=== PATIENT | male | born 1950 | race Two or more races ===

== ENCOUNTER 2025-07-19 19:52 | Inpatient (IN) | payer MEDICARE, OTHER, SELFPAY ==
[2025-07-19 15:23] VITALS: BP 148/81
[2025-07-19 15:59] LABS: COVID-19 Antigen Negative (Negative)
[2025-07-19 16:33] VITALS: BP 128/60
[2025-07-19 16:35] VITALS: BMI 25.0
[2025-07-19 17:00] VITALS: BP 125/55
[2025-07-19] MEDS: TYLENOL/FEVERALL 650 MG RECTAL (17:04)
--- NOTE | 2025-07-19 17:09 | ED.GENMED ---
History of Present Illness
<Zenaida Raymundo PA-C - Last Filed: 07/20/25 14:11>
General
Chief Complaint: Weakness
Source: patient
Exam Limitations: altered mental status
Time Seen by Provider: 07/19/25 16:43
Nursing documentation reviewed up to this point in time: agreed with
History of Present Illness
History of Present Illness:
Patient is a 74-year-old male with history of Alzheimer's, CAD s/p CABG and stents with a pacemaker who presents to the emergency department with daughter for evaluation of generalized weakness. Patient has history of Alzheimer's and is unable to
contribute to history. His daughter states that this morning her father, who she lives with, was unable to get out of bed due to what appeared to be generalized weakness. He also appeared to be more confused than his baseline today. He seemed to
be at his baseline health yesterday.
Patient's daughter was unaware that he had a fever until he arrived today in the emergency department. She states that he struggles with a chronic cough and runny nose. No recent productive cough, complaints of abdominal pain, diarrhea. No
obvious changes in urination.There have not been any known sick contacts. No history of recent falls or trauma.
Patient currently denies any complaints including chest pain, shortness of breath, or abdominal pain.
Review of Systems
<Zenaida Raymundo PA-C - Last Filed: 07/20/25 14:11>
Review of Systems
Allergies reviewed?: Yes
All Other Systems: ROS reviewed and negative except as documented in HPI and ROS
Phy Exam
<Zenaida Raymundo PA-C - Last Filed: 07/20/25 14:11>
Physical Exam
Physical Exam:
Vitals: Febrile. Otherwise vital signs stable.
General: Patient is generally weak although appears in no distress
Skin: Warm and dry, no rashes or lesions
Head: Normocephalic, atraumatic
Eyes: Sclera nonicteric. No nystagmus.
Throat: Protecting airway
Neck: Normal ROM, no cervical spine tenderness, no meningismus
Cardiac: Regular rate and rhythm, no murmurs.
Pulm: Normal respiratory effort. Lungs clear bilaterally.
Abdomen: Abdomen soft and nontender. No rebound tenderness or guarding.
Extremities: No evidence of cyanosis or edema. Distal pulses intact
Neuro: Alert. Decreased strength in bilateral lower extremities.
Psychiatric: Normal affect.
Sepsis
<Zenaida Raymundo PA-C - Last Filed: 07/20/25 14:11>
Sepsis Screening
Sepsis Assessment: Sepsis
Sepsis Screen
Sepsis Screen: Sepsis
Date: 07/20/25
Time: 14:09
Course
<Zenaida Raymundo PA-C - Last Filed: 07/20/25 14:11>
Orders/Labs/Results
Orders:
Orders
07/19/25 Breakfast
Regular
At Your Request: Limited Participation
07/19/25 15:31
COVID-19 Antigen Urgent
Source: Nasal Swab
Influenza A+B Rapid Molecular Urgent
TETE Source: Nasal Swab
Specimen Description:
07/19/25 16:55
Complete Blood Count/With Diff Urgent
Comprehensive Metabolic Panel Urgent
Lactic Acid Urgent
Blood Culture Urgent
TETE Source: Blood/Venous
Specimen Description:
07/19/25 16:59
Straight cath- Treatment ONCE
Acetaminophen [Tylenol/Feverall] 650 mg RECTAL NOW STA
07/19/25 17:00
CT Head W/o Iv Contrast Urgent
Comment:
Reason For Exam: AMS, weakness
CR Chest - 2 Views Urgent
Comment:
Reason For Exam: Fever, cough
07/19/25 17:01
Electrocardiogram (*1) Urgent
Reason for Study: Fatigue / Weakness
EKG- Treatment ONCE
Interrogate Pacemaker- Treatment ONCE
0.9% Sodium Chloride 1000 ml [Nss] 1,000 ml IV BOLUS
Acetaminophen [Tylenol/Feverall] 650 mg .ROUTE .STK-MED ONE
07/19/25 17:05
Blood Culture Urgent
TETE Source: Blood/Venous
Specimen Description:
07/19/25 18:06
Troponin I Urgent
Urinalysis Reflex To Culture Urgent
Date Specimen was Collected: 07/19/25
Time Specimen was Collected: 17:41
Urine Microscopic Reflex Cult Urgent
Urine Culture Urgent
TETE Source: U
Specimen Description:
Date Specimen was Collected: 07/19/25
Time Specimen was Collected: 17:41
07/19/25 18:36
Cefepime HCl [Maxipime] 2,000 mg IV NOW STA
07/19/25 19:15
0.9% Sodium Chloride 1000 ml [Nss] 1,000 ml IV BOLUS
07/19/25 19:29
Sterile Water [Sterile Water For Injection] 20 ml .ROUTE .STK-MED
07/19/25 19:32
Admit/Transfer Patient As Directed
Co-Sign Provider:
Level of Care: Inpatient admission
Assign to:: Medical/Surgical
Physician / Group: Jacob
Diagnosis: UTI, Sepsis, TME
Reason for Hospitalization: UTI, Sepsis, TME
Expected length of stay greater than two midnights?: Yes
ELOS- Estimated Length of Stay in days: 3
I certify the patient meets the requirements for IP care: Yes
PRN Pain Medication Management As Directed
May give lesser potent ordered pain med per pt: Yes
preference::
Protocol:: Medication orders for pain may be administered in a
manner that supports deferring to patient preference
when the pt is:
- Requesting an ordered lesser potent pain medication.
Least to most potent pain medications are defined
as: acetaminophen < NSAID < tramadol < opioids
(morphine, oxycodone, hydromorphone).
- Requesting a lesser dose of the same medication IF
ORDERED.
- Requesting a less intrusive route of administration
if both routes are prescribed by the provider (PO <
IV).
07/19/25 19:33
Code Status As Directed
Resuscitation Status: Limited DNR
Limited DNR: -No intubation
07/19/25 21:35
0.9% Sodium Chloride 1000 ml [Nss] 1,000 ml IV 80 mls/hr
Acetaminophen [Tylenol] 650 mg PO Q4HPRN PRN
Metoprolol [Lopressor] 25 mg PO BID
07/19/25 21:35
Activity As Directed
Activity Level: Ambulate
With Assistance
Bladder Scan As Directed
Follow Bladder Retention/Intermittent Cath Algorithm?: Yes
PRN if no void in __ hours: 6
Frequency: Per Retention Algorithm
If Bladder Scan Result >: 400
then:: Straight cath
I/O [Intake/ Output] As Directed
Frequency: Per unit guidelines
Pneumatic Compression Sleeves As Directed
Type: Knee high
Straight Cath As Directed
Frequency: Per Retention Algorithm
Additional Instructions: straight cath as needed per acute urinary retention algorithm for 24 hrs
Additional Instructions: for bladder scan greater than 400 mL
Vital Signs As Directed
Frequency: Per unit guidelines
Oxygen Therapy [O2 Therapy] [RESP] Routine
Titrate/Wean O2 to maintain O2 sat greater than (%): 94
Ot Eval And Treat Routine
PT Consult [Pt Eval And Treat] Routine
Activity Level: Ambulate
With Assistance
Speech Therapy Eval & Treat Routine
DX Deep Vein Thrombosis Video Routine
07/19/25 22:00
Atorvastatin [Lipitor] 80 mg PO HS
Memantine HCl [Namenda] 10 mg PO BID
Trazodone [Desyrel] 50 mg PO HS
07/20/25 06:00
CefTRIAXone [Rocephin] 1,000 mg IV Q24H
07/20/25 06:34
Basic Metabolic Panel IN AM
Complete Blood Count/No Diff IN AM
07/20/25 08:00
Aspirin Low Dose EC [Aspir Low (Enteric Coated)] 81 mg PO DAILY
Clopidogrel Bisulfate [Plavix] 75 mg PO DAILY
Donepezil HCl [Aricept] 10 mg PO DAILY
Escitalopram Oxalate [Lexapro] 15 mg PO DAILY
FOLic ACID [Folvite] 1 mg PO DAILY
Abnormal Lab Results
07/19/25 07/19/25
16:55 18:06
WBC 16.0 H 10^3/uL
(4.8-10.8)
MPV 10.5 H fL
(7.4-10.4)
Abs Immat Gran (auto) 0.1 H 10^3/uL
(0-0.05)
Absolute Neuts (auto) 13.7 H 10^3/uL
(1.4-6.5)
Absolute Monos (auto) 0.9 H 10^3/uL
(0.1-0.6)
Neutrophils % 85.3 H %
(42.2-75.2)
Lymphocytes % 7.5 L %
(20.5-51.1)
Sodium 133 L mmol/L
(135-145)
Glucose 195 H mg/dl
(70-99)
Total Bilirubin 2.0 H mg/dl
(0.2-1.3)
Urine Ketones 1+ A
(Negative)
Ur Occult Blood Reflex 4+ A
(Negative)
Urine Nitrite (Reflex) Positive A
(Negative)
Leukocyte Esterase Rfl 2+ A
(Negative)
Urine RBC 26-30 A /HPF
(0-2)
Urine WBC (Reflex) 50-60 A /HPF
(0-5)
Urine Bacteria (Reflex) Many A
(Negative)
Urine Glucose 3+ A
(Negative)
Urine Albumin (Reflex) 2+ A
(Neg - Trace)
07/19/25 16:55
07/19/25 16:55
Vital Signs
Initial and Last Documented VS:
Initial Vital Signs
Temp Pulse Resp BP Pulse Ox
101.4 F H 83 16 148/81 95
07/19/25 15:23 07/19/25 15:23 07/19/25 15:23 07/19/25 15:23 07/19/25 15:23
Last Documented Vital Signs
Temp Pulse Resp BP Pulse Ox
98.1 F 67 18 152/70 96
07/20/25 08:01 07/20/25 08:49 07/20/25 08:01 07/20/25 08:49 07/20/25 08:01
<Deb Cerda, DO - Last Filed: 07/19/25 18:39>
Orders/Labs/Results
Orders:
Orders
07/19/25 Breakfast
Regular
At Your Request: Limited Participation
07/19/25 15:31
COVID-19 Antigen Urgent
Source: Nasal Swab
Influenza A+B Rapid Molecular Urgent
TETE Source: Nasal Swab
Specimen Description:
07/19/25 16:55
Complete Blood Count/With Diff Urgent
Comprehensive Metabolic Panel Urgent
Lactic Acid Urgent
Blood Culture Urgent
TETE Source: Blood/Venous
Specimen Description:
07/19/25 16:59
Straight cath- Treatment ONCE
Acetaminophen [Tylenol/Feverall] 650 mg RECTAL NOW STA
07/19/25 17:00
CT Head W/o Iv Contrast Urgent
Comment:
Reason For Exam: AMS, weakness
CR Chest - 2 Views Urgent
Comment:
Reason For Exam: Fever, cough
07/19/25 17:01
Electrocardiogram (*1) Urgent
Reason for Study: Fatigue / Weakness
EKG- Treatment ONCE
Interrogate Pacemaker- Treatment ONCE
0.9% Sodium Chloride 1000 ml [Nss] 1,000 ml IV BOLUS
Acetaminophen [Tylenol/Feverall] 650 mg .ROUTE .STK-MED ONE
07/19/25 17:05
Blood Culture Urgent
TETE Source: Blood/Venous
Specimen Description:
07/19/25 18:06
Troponin I Urgent
Urinalysis Reflex To Culture Urgent
Date Specimen was Collected: 07/19/25
Time Specimen was Collected: 17:41
Urine Microscopic Reflex Cult Urgent
Urine Culture Urgent
TETE Source: U
Specimen Description:
Date Specimen was Collected: 07/19/25
Time Specimen was Collected: 17:41
07/19/25 18:36
Cefepime HCl [Maxipime] 2,000 mg IV NOW STA
07/19/25 19:15
0.9% Sodium Chloride 1000 ml [Nss] 1,000 ml IV BOLUS
07/19/25 19:29
Sterile Water [Sterile Water For Injection] 20 ml .ROUTE .STK-MED
07/19/25 19:32
Admit/Transfer Patient As Directed
Co-Sign Provider:
Level of Care: Inpatient admission
Assign to:: Medical/Surgical
Physician / Group: Jcaob
Diagnosis: UTI, Sepsis, TME
Reason for Hospitalization: UTI, Sepsis, TME
Expected length of stay greater than two midnights?: Yes
ELOS- Estimated Length of Stay in days: 3
I certify the patient meets the requirements for IP care: Yes
PRN Pain Medication Management As Directed
May give lesser potent ordered pain med per pt: Yes
preference::
Protocol:: Medication orders for pain may be administered in a
manner that supports deferring to patient preference
when the pt is:
- Requesting an ordered lesser potent pain medication.
Least to most potent pain medications are defined
as: acetaminophen < NSAID < tramadol < opioids
(morphine, oxycodone, hydromorphone).
- Requesting a lesser dose of the same medication IF
ORDERED.
- Requesting a less intrusive route of administration
if both routes are prescribed by the provider (PO <
IV).
07/19/25 19:33
Code Status As Directed
Resuscitation Status: Limited DNR
Limited DNR: -No intubation
07/19/25 21:35
0.9% Sodium Chloride 1000 ml [Nss] 1,000 ml IV 80 mls/hr
Acetaminophen [Tylenol] 650 mg PO Q4HPRN PRN
Metoprolol [Lopressor] 25 mg PO BID
07/19/25 21:35
Activity As Directed
Activity Level: Ambulate
With Assistance
Bladder Scan As Directed
Follow Bladder Retention/Intermittent Cath Algorithm?: Yes
PRN if no void in __ hours: 6
Frequency: Per Retention Algorithm
If Bladder Scan Result >: 400
then:: Straight cath
I/O [Intake/ Output] As Directed
Frequency: Per unit guidelines
Pneumatic Compression Sleeves As Directed
Type: Knee high
Straight Cath As Directed
Frequency: Per Retention Algorithm
Additional Instructions: straight cath as needed per acute urinary retention algorithm for 24 hrs
Additional Instructions: for bladder scan greater than 400 mL
Vital Signs As Directed
Frequency: Per unit guidelines
Oxygen Therapy [O2 Therapy] [RESP] Routine
Titrate/Wean O2 to maintain O2 sat greater than (%): 94
Ot Eval And Treat Routine
PT Consult [Pt Eval And Treat] Routine
Activity Level: Ambulate
With Assistance
Speech Therapy Eval & Treat Routine
DX Deep Vein Thrombosis Video Routine
07/19/25 22:00
Atorvastatin [Lipitor] 80 mg PO HS
Memantine HCl [Namenda] 10 mg PO BID
Trazodone [Desyrel] 50 mg PO HS
07/20/25 06:00
CefTRIAXone [Rocephin] 1,000 mg IV Q24H
07/20/25 06:34
Basic Metabolic Panel IN AM
Complete Blood Count/No Diff IN AM
07/20/25 08:00
Aspirin Low Dose EC [Aspir Low (Enteric Coated)] 81 mg PO DAILY
Clopidogrel Bisulfate [Plavix] 75 mg PO DAILY
Donepezil HCl [Aricept] 10 mg PO DAILY
Escitalopram Oxalate [Lexapro] 15 mg PO DAILY
FOLic ACID [Folvite] 1 mg PO DAILY
Abnormal Lab Results
07/19/25 07/19/25
16:55 18:06
WBC 16.0 H 10^3/uL
(4.8-10.8)
MPV 10.5 H fL
(7.4-10.4)
Abs Immat Gran (auto) 0.1 H 10^3/uL
(0-0.05)
Absolute Neuts (auto) 13.7 H 10^3/uL
(1.4-6.5)
Absolute Monos (auto) 0.9 H 10^3/uL
(0.1-0.6)
Neutrophils % 85.3 H %
(42.2-75.2)
Lymphocytes % 7.5 L %
(20.5-51.1)
Sodium 133 L mmol/L
(135-145)
Glucose 195 H mg/dl
(70-99)
Total Bilirubin 2.0 H mg/dl
(0.2-1.3)
Urine Ketones 1+ A
(Negative)
Ur Occult Blood Reflex 4+ A
(Negative)
Urine Nitrite (Reflex) Positive A
(Negative)
Leukocyte Esterase Rfl 2+ A
(Negative)
Urine RBC 26-30 A /HPF
(0-2)
Urine WBC (Reflex) 50-60 A /HPF
(0-5)
Urine Bacteria (Reflex) Many A
(Negative)
Urine Glucose 3+ A
(Negative)
Urine Albumin (Reflex) 2+ A
(Neg - Trace)
07/19/25 16:55
07/19/25 16:55
Vital Signs
Initial and Last Documented VS:
Initial Vital Signs
Temp Pulse Resp BP Pulse Ox
101.4 F H 83 16 148/81 95
07/19/25 15:23 07/19/25 15:23 07/19/25 15:23 07/19/25 15:23 07/19/25 15:23
Last Documented Vital Signs
Temp Pulse Resp BP Pulse Ox
98.1 F 67 18 152/70 96
07/20/25 08:01 07/20/25 08:49 07/20/25 08:01 07/20/25 08:49 07/20/25 08:01
<Zenaida Raymundo PA-C - Last Filed: 07/20/25 14:11>
MDM/Problems Addressed
Differential Diagnosis Includes:
Not limited to: Sepsis, viral illness, bronchitis, pneumonia, UTI, pyelonephritis, etc.
MDM/Problems Addressed:
74-year-old male presents with generalized weakness for one day and was noted to be febrile on arrival. His daughter reports worsening confusion, though he has a known history of dementia.
On examination, the patient is alert without focal neurological deficits but appears generally weak, particularly in the bilateral lower extremities. Cardiopulmonary and abdominal exams are unremarkable, though he does have an intermittent cough.
Given the combination of fever, weakness, and altered mentation, concern for infectious process. A full septic workup was performed, including CBC, chemistry, lactic acid, urinalysis, chest X-ray, head CT, and blood cultures.
Labs revealed leukocytosis; chemistry was unremarkable, and lactic acid was at the upper limit of normal. Chest X-ray and head CT showed no acute abnormalities. Urinalysis demonstrated findings suggestive of a urinary tract infection, which is
suspected to be the primary source of infection.
The patient was treated with IV fluids and IV Cefepime in the ED. He has remained hemodynamically stable and normotensive throughout his stay. Given his age, comorbid dementia, and presentation concerning for early sepsis, admission is warranted for
continued IV antibiotic therapy and monitoring. The patient has been accepted by the hospitalist service in stable condition for ongoing care.
Chronic conditions affecting care:
Alzheimer's
Acute Exacerbation and/or Progression of Chronic Illness:
N/A
<Zenaida Raymundo PA-C - Last Filed: 07/20/25 14:11>
*Radiology
Radiology exam reviewed: radiology read reviewed
*Pulse Oximetry
SaO2: 95
Oxygen Mode of Delivery: Room air
Patient hypoxic: no
*EKG
Interpreted by ED Provider?: Yes
EKG Intrepretation Date: 07/19/25
Interpretation: abnormal
Comparison EKG: changes noted
Heart Rate: 68
Rate: normal
Rhythm: sinus
[place]: normal axis
Interval: normal QT interval
QRS Pattern: low voltage
Ischemia: T-wave inversion (T wave inversions in anterior/lateral leads)
*Disability Liaison Officer Interpretation
Rate: normal
Interpretation: normal
Heart Rate: 80
Rhythm: sinus
*Critical Care Note
Total Time (30-74mins, 75-104mins- exclusive of procedures): Not Applicable
<Zenaida Raymundo PA-C - Last Filed: 07/20/25 14:11>
Patient Management
Discussion with other providers: Hospitalist
Escalation/DeEscalation of care consider admission/obs:
Admit for IV antibiotics, fluid resuscitation with sepsis secondary to UTI
ED Attending Note
<Zenaida Raymundo PA-C - Last Filed: 07/20/25 14:11>
-
Portions of this chart may have been created with voice recognition software.� Occasional wrong word or��sound alike� substitutions may have occurred due to the inherent limitations of voice recognition software.
<Deb Cerda DO - Last Filed: 07/19/25 18:39>
ED Attending Note
Patient seen and examined by attending physician: Yes
I performed the substantive portion of visit, reviewed & personally made and approve the management plan that is documented in note by myself or DAVID.: Yes
I performed a history and physical exam of patient and discussed management with resident, I reviewed resident's note and agree with documented findings and plan of care.: Yes
ED Attending Note:
74-year-old male with history of dementia presenting for increased confusion. Patient arrives with daughter who notes that yesterday he did not want to get out of bed, increasingly confused. Patient very limited historian given his dementia.
Daughter notes chronic cough. Denies any known sick contacts. Patient himself denies any abdominal pain. Vital signs on arrival significant for fever
On exam patient is resting comfortably, nontoxic and in no acute distress. Unremarkable cardiac and pulmonary exam. No tenderness to the abdomen. Patient is disoriented, however suspected baseline per daughter. Patient is meeting SIRS, with
concern for underlying infection and possible developing sepsis. Plan for broad workup including laboratory analysis, chest x-ray imaging, urinalysis. No indication for advanced imaging of the abdomen at this time.
18:40- Labs show leukocytosis and a lactate of 2.0. Patient receiving IV fluids. Chest x-ray without any sign of pneumonia. Negative COVID and flu. Urine is grossly positive for UTI. Will start patient on cefepime with plan for admission for
concern of sepsis from urinary source
Discharge Plan
Departure
Patient Disposition: Admit
Date of Disposition: 07/19/25
Time of Disposition: 18:49
Presentation/result/management discussed w/ accepting MD/DO: Hospitalist
Discharge Problem:
Sepsis, Acute UTI, Altered mental status
Interventions
Interventions:
*Risk Screen - Suicide Last Done: 07/19/25 15:26
*General Assessment Last Done: 07/19/25 16:36
*Neglect/Abuse Screening Last Done: 07/19/25 15:26
*ED- Fall Risk Assessment Last Done: 07/19/25 16:36
*ED COVID-19 Vaccine History Last Done: 07/19/25 16:36
*ED Influenza Vaccine History Last Done: 07/19/25 16:36
*Nursing Disposition Last Done: 07/19/25 22:03
ED- Cardiac Assessment Last Done: 07/19/25 17:11
ED- Neurological Assessment Last Done: 07/19/25 17:11
ED- Pulmonary Assessment Last Done: 07/19/25 17:11
Discharge Date and Time
Discharge Date/Time: 07/19/25 21:50
[2025-07-19 17:15] LABS: Hematocrit 42.4 % (39.0-52.0); Hemoglobin 14.3 g/dL (13.0-18.0); Mean Corp Hgb Conc. 33.7 g/dL (33.0-37.0); Mean Corpuscular Volume 88.0 fL (80.0-94.0); Nucleated Red Blood Cells % 0 % (-); Platelet Count 187 10^3/uL (130-400); Red Cell Dist. Width 12.5 % (11.5-14.5)
[2025-07-19 17:36] LABS: ALT (SGPT) 32 U/L (0-50); AST (SGOT) 30 U/L (17-59); Albumin 3.9 g/dl (3.5-5.0); Alkaline Phosphatase 89 U/L (38-126); Blood Urea Nitrogen 19 mg/dl (9-20); Calcium 9.5 mg/dl (8.4-10.2); Carbon Dioxide 23 mmol/L (22-30); Chloride 104 mmol/L (98-107); Estimated Creatinine Clearance 69 ml/min; Glucose 195 mg/dl (70-99); Potassium 3.6 mmol/L (3.5-5.1); Sodium 133 mmol/L (135-145); Total Protein 6.5 g/dl (6.3-8.2); eGFR > 60.00
[2025-07-19] MEDS: NSS 1000 IV ×3 (18:10→21:53)
[2025-07-19 18:22] LABS: Urine Character Slightly Cloudy (Clear)
[2025-07-19 18:36] LABS: Urine Red Blood Cell 26-30 /HPF (0-2)
[2025-07-19 18:37] LABS: Urine Squamous Cell 0-2 /LPF (Few); Urine White Cell 50-60 /HPF (0-5)
[2025-07-19 18:52] LABS: Troponin I < 0.012 ng/ml
[2025-07-19] MEDS: MAXIPIME 2000 MG IV (19:30)
--- NOTE | 2025-07-19 19:36 | HPS.HSE ---
Family Physician
-
Family Physician: Rangel Jain
Chief Complaint
-
Weakness / Confusion
History of Present Illness
Patient is a 74y M with PMH significant for ASCVD and dementia who presents to ED for evaluation of weakness and increased confusion. History obtained from daughter at the bedside. Patient is pleasantly confused at baseline. He is able to
ambulate with assist device or family assistance. He has had no recent complaints. Today family noted that he was very weak. He was unable to stand or even sit upright unassisted. Patient also seemed more disoriented than usual. Daughter notes
that he did not recognize her at time which is not typical. He was incontinent of urine. He usually has 'accidents' / urge incontinence but is not grossly incontinent.
In the ED patient is noted to be febrile to 102.3. He is resting comfortably at present.
Medical History
Past Medical History
Past Medical History: Reports Other
Additional Past Medical History:
ASCVD
SSS
Alzheimer's Dementia
Past Surgical History: Reports Other
Additional Past Surgical History:
CABG x 5
PTCA with Stents
PPM Placement
Social History
Tobacco: Former Smoker (Quit smoking 7 years ago.)
Alcohol: None
Drug: None
Living: With Family
Family History
Family History: Not pertinent
Allergies / Home Medications
Allergies reflects when Allergies were last updated in [facility] [employer].
Home Medications with original date entered in [facility]
Allergy/Medication List:
Allergies
Allergy/AdvReac Type Severity Reaction Status Date / Time
No Known Allergies Allergy Unverified 07/19/25 15:23
Home Medications
aspirin 81 mg tablet,delayed release 81 mg PO DAILY 07/19/25
atorvastatin 80 mg tablet 80 mg PO HS 07/19/25
clopidogrel 75 mg tablet 75 mg PO DAILY 07/19/25
donepezil 10 mg tablet 10 mg PO DAILY 07/19/25
escitalopram oxalate 10 mg tablet 15 mg PO DAILY 07/19/25
folic acid 1 mg tablet 1 mg PO DAILY 07/19/25
icosapent ethyl 1 gram capsule (Vascepa) 2 g PO BID 07/19/25
memantine 21 mg capsule sprinkle,extended release 24hr 21 mg PO HS 07/19/25
metoprolol tartrate 25 mg tablet 25 mg PO BID 07/19/25
trazodone 50 mg tablet 50 mg PO HS 07/19/25
Review of Systems
-
History Source: Patient (limited ROS from patient with daughter serving as inspecting engineer.) and Family
A 12 point ROS was completed and negative except as noted: Yes
Constitutional: Reports Fatigue
Respiratory: Denies Cough
Cardiac: Denies Chest Pain or Palpitations
Abdomen/GI: Reports Diarrhea (One episode of loose stools 2 days ago. None since.); Denies Abdominal Pain, Nausea, Vomiting, Bloody Stools or Black Stools
: Reports Incontinence; Denies Dysuria, Flank Pain or Bleeding
Neurological: Reports Weakness; Denies Headache
Psych: Reports Dementia
Physical Exam
Vital Signs
Vital Signs
Temp Pulse Resp BP Pulse Ox
102.3 F H 68 17 125/55 95
07/19/25 17:11 07/19/25 17:00 07/19/25 17:00 07/19/25 17:00 07/19/25 17:10
Physical Exam
General: Other (74y M in no acute distress.)
HEENT: Moist mucous membranes and PERRLA
Respiratory: Clear; No Wheezes, Rales or Rhonchi
Cardiac: S1/S2 and Regular Rhythm; No Murmur
GI: Soft, Non Tender, Non Distended and Normal Bowel Sounds
Genito-urinary: No costovertebral tender
Musculoskeletal: No Clubbing, No Cyanosis and No Edema
Neuro: Awake, Alert and Nonfocal/grossly intact; No Oriented
Laboratory Results
-
07/19/25 16:55
07/19/25 16:55
Laboratory Results
Lactic Acid 1.9 mmol/L (0.7-2.0) 07/19/25 16:55
Total Bilirubin 2.0 mg/dl (0.2-1.3) H 07/19/25 16:55
AST 30 U/L (17-59) 07/19/25 16:55
ALT 32 U/L (0-50) 07/19/25 16:55
Alkaline Phosphatase 89 U/L (38-126) 07/19/25 16:55
Troponin I < 0.012 ng/ml 07/19/25 18:06
Impression/Plan
-
A/P: Patient is a 74y M with PMH significant for ASCVD and dementia who presents to ED for evaluation of weakness and confusion.
UTI
Sepsis secondary to the above
Acute TME secondary to the above
- Admit for further evaluation and treatment.
- Patient presents with fever, leukocytosis, urinary incontinence and UA suggestive of infection.
- No other focal symptoms, findings, etc to suggest alternate source of infection.
- Continue IV ceftriaxone pending culture data.
- IVF support.
- Follow fever curve and monitor for clinical improvement / return to baseline.
ASCVD
- Stable. No noted chest pain or dyspnea.
- Paced rhythm.
- Continue current CV medication regimen.
Alzheimer's Dementia
- Follow for acute agitation / delirium during hospital stay.
- Continue Aricept / Namenda and trazodone.
DVT Prophylaxis: SCDs
Code Status: DNI
[2025-07-19 19:43] VITALS: BP 130/55
[2025-07-19 20:00] VITALS: BP 117/54
[2025-07-19 21:53] VITALS: BP 102/67
[2025-07-19] MEDS: NAMENDA 10 MG PO (22:02)
[2025-07-19] MEDS: TYLENOL 650 MG PO (22:02)
[2025-07-19] MEDS: LOPRESSOR 25 MG PO (22:02)
[2025-07-19] MEDS: DESYREL 50 MG PO (22:02)
[2025-07-19] MEDS: LIPITOR 80 MG PO (22:03)
--- NOTE | 2025-07-20 02:28 | DOWNTIME ---
There was a [employer] Client Electrical Inspector Downtime on 07/20/2025 from 0100 to 07/20/2025 at 0215. Downtime documentation of patient's care, including medication administrations, has been reconciled in the electronic record per guidelines. Refer to the
patient's paper chart under the miscellaneous tab to see printed paper medication records and downtime forms.
[2025-07-20] MEDS: ROCEPHIN 1000 MG IV (05:37)
[2025-07-20] MEDS: STERILE WATER FOR INJECTION 10 ML IV (05:37)
[2025-07-20 07:36] LABS: Hematocrit 38.9 % (39.0-52.0); Hemoglobin 12.9 g/dL (13.0-18.0); Mean Corp Hgb Conc. 33.2 g/dL (33.0-37.0); Mean Corpuscular Volume 90.3 fL (80.0-94.0); Platelet Count 154 10^3/uL (130-400); Red Cell Dist. Width 12.8 % (11.5-14.5)
[2025-07-20 08:01] VITALS: BP 152/70
[2025-07-20 08:19] LABS: Blood Urea Nitrogen 18 mg/dl (9-20); Calcium 8.5 mg/dl (8.4-10.2); Carbon Dioxide 22 mmol/L (22-30); Chloride 112 mmol/L (98-107); Estimated Creatinine Clearance 89 ml/min; Glucose 119 mg/dl (70-99); Potassium 3.7 mmol/L (3.5-5.1); Sodium 139 mmol/L (135-145); eGFR > 60.00
--- NOTE | 2025-07-20 08:35 | PTOTSP ---
Speech Language Pathology
Pt seen for clinical bedside swallow evaluation. Confusion noted, but pt was cooperative. P.O. trials of puree, regular solids, and thin liquids provided. Pt also seen for med pass with multiple pills at 1 time with liquid. Adequate mastication,
bolus formation, and A-P transit noted with no oral residue. No overt signs of aspiration. CXR clear on admission. No hx with IMPROVEMENT ENGINEER at [facility].
Recommend:
(1) Regular solids/thin liquids
(2) General aspiration precautions
(3) Meds as tolerated
(4) IMPROVEMENT ENGINEER to sign off. Please reconsult as indicated
[2025-07-20] MEDS: ASPIR LOW (ENTERIC COATED) 81 MG PO (08:37)
[2025-07-20] MEDS: FOLVITE 1 MG PO (08:37)
[2025-07-20] MEDS: NAMENDA 10 MG PO ×2 (08:37→20:26)
[2025-07-20] MEDS: LEXAPRO 15 MG PO (08:37)
[2025-07-20] MEDS: PLAVIX 75 MG PO (08:37)
[2025-07-20] MEDS: ARICEPT 10 MG PO (08:37)
[2025-07-20] MEDS: LOPRESSOR 25 MG PO ×2 (08:49→20:26)
[2025-07-20] MEDS: NSS 1000 IV (10:19)
[2025-07-20 11:41] LABS: Hepatitis C Antibody Negative (Negative)
[2025-07-20 16:00] VITALS: BP 120/90
--- NOTE | 2025-07-20 16:00 | W.PN.HOSP.TC ---
Today's Communication/Plan
-
Continue antibiotics pending cultures
Wean off IV fluids with sufficient oral intake and hydration
Bladder scan for retention
Continue supportive care
Assessment / Plan
Assessment / Plan
Impression/plan
Patient is a 74y M with PMH significant for ASCVD and dementia who presents to ED for evaluation of weakness and confusion.
UTI
Concern for sepsis secondary to the above
Acute TME secondary to the above
- Patient presents with fever, leukocytosis, urinary incontinence and UA suggestive of infection.
- No other focal symptoms, findings, etc to suggest alternate source of infection.
- Continue IV ceftriaxone pending culture data.
- IVF support.
- Follow fever curve and monitor for clinical improvement / return to baseline.
ASCVD
- Stable. No noted chest pain or dyspnea.
- Paced rhythm.
- Continue current CV medication regimen.
Alzheimer's Dementia
- Follow for acute agitation / delirium during hospital stay.
- Continue Aricept / Namenda and trazodone.
DVT Prophylaxis: SCDs
Code Status: DNI
Anticipated Discharge: 24 - 48 hours
Subjective/Interval History
-
Date of Service: July 20, 2025
Objective Data
-
Labs:
Laboratory Results
07/20/25
06:34
WBC 11.7 H
Hgb 12.9 L
Hct 38.9 L
Plt Count 154
Sodium 139
Potassium 3.7
Chloride 112 H
Carbon Dioxide 22
BUN 18
Creatinine 0.7
Glucose 119 H
Calcium 8.5
Vital Signs:
Vital Signs
Temp Pulse Resp BP Pulse Ox
98.1 F 67 18 152/70 96
07/20/25 08:01 07/20/25 08:49 07/20/25 08:01 07/20/25 08:49 07/20/25 08:01
Physical Exam
-
General: Well Developed and No Apparent Distress
HEENT: Normocephalic, Atraumatic and Moist Mucous Membranes
Respiratory: Clear to Auscultation
Cardiac: Regular Rhythm and S1/S2; Negative Murmur, Rub or Gallop
GI: Soft, Nontender, Nondistended and Normal Bowel Sounds; Negative Organomegaly
Rectal: Deferred by Provider
Musculoskeletal: No Clubbing, No Cyanosis and No Edema
Skin: Negative Rash
Neuro: Awake, Alert, Oriented (To name only) and Nonfocal/Grossly Intact
--- NOTE | 2025-07-20 16:17 | CM ---
carbon sequestration plant manager reviewed patient's chart and met with patient and spoke with patient's daughter by phone. Patient has dementia. Patient lives in a one story home, is independent with adl's and has a walker to use with ambulation, however patient walks
without his walker, patient is current with [facility] at home and referral sent.
[facility]

PCP: Rangel Jain
Pharmacy: [facility].
[2025-07-20 20:22] VITALS: BP 120/51
[2025-07-20] MEDS: DESYREL 50 MG PO (21:28)
[2025-07-20] MEDS: LIPITOR 80 MG PO (21:29)
[2025-07-20 23:00] VITALS: BP 118/56
[2025-07-20 23:25] VITALS: BP 118/56
[2025-07-21] MEDS: NSS 1000 IV ×2 (02:05→21:11)
[2025-07-21] MEDS: STERILE WATER FOR INJECTION 10 ML IV (05:41)
[2025-07-21] MEDS: ROCEPHIN 1000 MG IV (05:41)
[2025-07-21 08:29] VITALS: BP 127/54
[2025-07-21 08:38] LABS: Hematocrit 35.1 % (39.0-52.0); Hemoglobin 11.6 g/dL (13.0-18.0); Mean Corp Hgb Conc. 33.0 g/dL (33.0-37.0); Mean Corpuscular Volume 89.1 fL (80.0-94.0); Nucleated Red Blood Cells % 0 % (-); Platelet Count 148 10^3/uL (130-400); Red Cell Dist. Width 13.0 % (11.5-14.5)
[2025-07-21 09:14] LABS: Blood Urea Nitrogen 16 mg/dl (9-20); Calcium 8.5 mg/dl (8.4-10.2); Carbon Dioxide 24 mmol/L (22-30); Chloride 108 mmol/L (98-107); Estimated Creatinine Clearance 69 ml/min; Glucose 128 mg/dl (70-99); Potassium 3.5 mmol/L (3.5-5.1); Sodium 136 mmol/L (135-145); eGFR > 60.00
[2025-07-21] MEDS: ASPIR LOW (ENTERIC COATED) 81 MG PO (09:20)
[2025-07-21] MEDS: LEXAPRO 15 MG PO (09:20)
[2025-07-21] MEDS: ARICEPT 10 MG PO (09:21)
[2025-07-21] MEDS: FOLVITE 1 MG PO (09:21)
[2025-07-21] MEDS: NAMENDA 10 MG PO ×2 (09:21→21:12)
[2025-07-21] MEDS: LOPRESSOR 25 MG PO ×2 (09:21→21:12)
[2025-07-21] MEDS: PLAVIX 75 MG PO (09:21)
--- NOTE | 2025-07-21 13:22 | CM ---
truck service manager reviewed patient's chart and plan is for patient to return to home with daughter when stable, manager of case sent a referral to [facility].
Plan; Home with [facility].
[facility]
[2025-07-21 14:26] VITALS: BP 101/42
--- NOTE | 2025-07-21 15:12 | W.PN.HOSP.TC ---
Today's Communication/Plan
-
US of kidney and bladder
Continue IV antibiotics for another 24 hours. Transition to oral regimen once afebrile for 24 hours
Supportive care
Assessment / Plan
Assessment / Plan
Impression/plan
Patient is a 74y M with PMH significant for ASCVD and dementia who presents to ED for evaluation of weakness and confusion.
UTI
Concern for sepsis secondary to the above
Acute TME secondary to the above
- Patient presents with fever, leukocytosis, urinary incontinence and UA suggestive of infection.
- No other focal symptoms, findings, etc to suggest alternate source of infection.
- Urine culture with sensitive Klebsiella pneumonia. Continued ceftriaxone.
- Check kidney/bladder ultrasound
- IVF support.
- Follow fever curve and monitor for clinical improvement / return to baseline.
ASCVD
- Stable. No noted chest pain or dyspnea.
- Paced rhythm.
- Continue current CV medication regimen.
Alzheimer's Dementia
- Follow for acute agitation / delirium during hospital stay.
- Continue Aricept / Namenda and trazodone.
DVT Prophylaxis: SCDs
Code Status: DNI
Anticipated Discharge: 24 - 48 hours
Subjective/Interval History
-
Date of Service: July 21, 2025
Objective Data
-
Labs:
Laboratory Results
07/21/25
06:35
WBC 10.3
Hgb 11.6 L
Hct 35.1 L
Plt Count 148
Sodium 136
Potassium 3.5
Chloride 108 H
Carbon Dioxide 24
BUN 16
Creatinine 0.9
Glucose 128 H
Calcium 8.5
Vital Signs:
Vital Signs
Temp Pulse Resp BP Pulse Ox
100.0 F 66 14 101/42 94
07/21/25 14:26 07/21/25 14:26 07/21/25 14:26 07/21/25 14:26 07/21/25 14:26
I&O
07/20/25 07/21/25 07/22/25
06:59 06:59 06:59
Intake Total 1620 / 1620 480 / 480
Balance 1620 / 1620 480 / 480
Physical Exam
-
General: Well Developed and No Apparent Distress
HEENT: Normocephalic, Atraumatic and Moist Mucous Membranes
Respiratory: Clear to Auscultation
Cardiac: Regular Rhythm and S1/S2; Negative Murmur, Rub or Gallop
GI: Soft, Nontender, Nondistended and Normal Bowel Sounds; Negative Organomegaly
Rectal: Deferred by Provider
Musculoskeletal: No Clubbing, No Cyanosis and No Edema
Skin: Negative Rash
Neuro: Awake, Alert, Oriented (To name only) and Nonfocal/Grossly Intact
[2025-07-21] MEDS: LIPITOR 80 MG PO (21:12)
[2025-07-21] MEDS: DESYREL 50 MG PO (21:12)
[2025-07-21 23:11] VITALS: BP 128/59
[2025-07-22] MEDS: STERILE WATER FOR INJECTION 10 ML IV (06:28)
[2025-07-22] MEDS: ROCEPHIN 1000 MG IV (06:28)
[2025-07-22 07:45] VITALS: BP 131/57
[2025-07-22] MEDS: LEXAPRO 15 MG PO (09:05)
[2025-07-22] MEDS: PLAVIX 75 MG PO (09:07)
[2025-07-22] MEDS: NAMENDA 10 MG PO ×2 (09:07→21:14)
[2025-07-22] MEDS: FOLVITE 1 MG PO (09:07)
[2025-07-22] MEDS: LOPRESSOR 25 MG PO ×2 (09:07→21:14)
[2025-07-22] MEDS: ARICEPT 10 MG PO (09:08)
[2025-07-22] MEDS: ASPIR LOW (ENTERIC COATED) 81 MG PO (09:08)
[2025-07-22] MEDS: TYLENOL 650 MG PO (09:23)
[2025-07-22 14:51] VITALS: BP 113/51; PULSE 63; O2SAT 97
[2025-07-22 15:11] VITALS: BP 116/61
--- NOTE | 2025-07-22 15:16 | CM ---
Patient to return to home when stable, with family support and visiting nurses, referral sent to visiting nurses.
[facility]
--- NOTE | 2025-07-22 17:02 | W.PN.HOSP.TC ---
Today's Communication/Plan
-
Continue IV antibiotics/ceftriaxone
Monitor for retention.
Consider transition to oral regimen and discharge after being afebrile for 24 hours
Discussed with patient's son at the bedside
Assessment / Plan
Assessment / Plan
Impression/plan
Patient is a 74y M with PMH significant for ASCVD and dementia who presents to ED for evaluation of weakness and confusion.
UTI
Sepsis ruled out
Acute TME secondary to the above, improved
- Patient presents with fever, leukocytosis, urinary incontinence and UA suggestive of infection.
- No other focal symptoms, findings, etc to suggest alternate source of infection.
- Urine culture with sensitive Klebsiella pneumonia. Continued ceftriaxone.
- Bladder scan with no retention.
-Renal/bladder ultrasound with no hydronephrosis. Trabeculated bladder. Enlarged prostate
Off IV fluids
- Follow fever curve and monitor for clinical improvement / return to baseline.
ASCVD
- Stable. No noted chest pain or dyspnea.
- Paced rhythm.
- Continue current CV medication regimen.
Alzheimer's Dementia
- Follow for acute agitation / delirium during hospital stay.
- Continue Aricept / Namenda and trazodone.
DVT Prophylaxis: SCDs
Code Status: DNI
Anticipated Discharge: 24 - 48 hours
Subjective/Interval History
-
Date of Service: July 22, 2025
Objective Data
-
Vital Signs:
Vital Signs
Temp Pulse Resp BP Pulse Ox
97.7 F 65 16 116/61 94
07/22/25 15:11 07/22/25 15:11 07/22/25 15:11 07/22/25 15:11 07/22/25 15:14
I&O
07/21/25 07/22/25 07/23/25
06:59 06:59 06:59
Intake Total 1620 / 1620 600 / 600
Balance 162 / 162 600 / 600
Physical Exam
-
General: Well Developed and No Apparent Distress
HEENT: Normocephalic, Atraumatic and Moist Mucous Membranes
Respiratory: Clear to Auscultation
Cardiac: Regular Rhythm and S1/S2; Negative Murmur, Rub or Gallop
GI: Soft, Nontender, Nondistended and Normal Bowel Sounds; Negative Organomegaly
Rectal: Deferred by Provider
Musculoskeletal: No Clubbing, No Cyanosis and No Edema
Skin: Negative Rash
Neuro: Awake, Alert, Oriented (To name only) and Nonfocal/Grossly Intact
[2025-07-22] MEDS: NSS IV (18:40)
[2025-07-22] MEDS: NSS 1000 IV (18:40)
[2025-07-22] MEDS: LIPITOR 80 MG PO (21:14)
[2025-07-22] MEDS: DESYREL 50 MG PO (21:14)
[2025-07-22 23:05] VITALS: BP 150/66
[2025-07-23] MEDS: NSS IV (06:25)
[2025-07-23] MEDS: ROCEPHIN 1000 MG IV (06:29)
[2025-07-23] MEDS: STERILE WATER FOR INJECTION 10 ML IV (06:29)
[2025-07-23 07:47] VITALS: BP 133/60
[2025-07-23] MEDS: FOLVITE 1 MG PO (08:40)
[2025-07-23] MEDS: LEXAPRO 15 MG PO (08:40)
[2025-07-23] MEDS: PLAVIX 75 MG PO (08:40)
[2025-07-23] MEDS: LOPRESSOR 25 MG PO ×2 (08:40→21:11)
[2025-07-23] MEDS: ASPIR LOW (ENTERIC COATED) 81 MG PO (08:40)
[2025-07-23 08:56] LABS: Hematocrit 33.7 % (39.0-52.0); Hemoglobin 11.9 g/dL (13.0-18.0); Mean Corp Hgb Conc. 35.3 g/dL (33.0-37.0); Mean Corpuscular Volume 84.9 fL (80.0-94.0); Nucleated Red Blood Cells % 0 % (-); Platelet Count 165 10^3/uL (130-400); Red Cell Dist. Width 12.8 % (11.5-14.5)
[2025-07-23] MEDS: NAMENDA 10 MG PO ×2 (08:57→21:11)
[2025-07-23] MEDS: ARICEPT 10 MG PO (08:57)
[2025-07-23 09:22] LABS: Blood Urea Nitrogen 15 mg/dl (9-20); Calcium 8.4 mg/dl (8.4-10.2); Carbon Dioxide 26 mmol/L (22-30); Chloride 106 mmol/L (98-107); Estimated Creatinine Clearance 104 ml/min; Glucose 119 mg/dl (70-99); Potassium 3.2 mmol/L (3.5-5.1); Sodium 134 mmol/L (135-145); eGFR > 60.00
--- NOTE | 2025-07-23 11:38 | CM ---
Addendum entered by Nathalia Candelario 07/24/25 10:40:
IMM explained to daughter at bedside; form signed @ 1040
Original Note:
Per Attending, he spoke w/ daughter today; she is agreeable to DC plan
Discharge to home tomorrow with home health/VN
[facility]
--- NOTE | 2025-07-23 13:02 | W.PN.HOSP.TC ---
Today's Communication/Plan
-
Assessment / Plan
Assessment / Plan
General: No Apparent Distress, Comfortable and Conversant
HEENT: NormoCephalic, Moist mucous membranes, Atraumatic
Respiratory: Clear and Non Labored Respirations
Cardiac: S1/S2 and Regular Rhythm; No Rub or Gallop
GI: Soft, Non Tender, Non Distended and Normal Bowel Sounds
Musculoskeletal: No Edema, no deformity
: NO Galloway
Neuro: Awake, Alert, Nonfocal/grossly intact
Psych: Calm and cooperative
Impression/plan
Patient is a 74y M with PMH significant for ASCVD and dementia who presents to ED for evaluation of weakness and confusion.
UTI
Sepsis ruled out
Acute TME secondary to the above, improved
- Patient presents with fever, leukocytosis, urinary incontinence and UA suggestive of infection.
- No other focal symptoms, findings, etc to suggest alternate source of infection.
- Urine culture with sensitive Klebsiella pneumonia. Continued ceftriaxone.
- Bladder scan with no retention.
-Renal/bladder ultrasound with no hydronephrosis. Trabeculated bladder. Enlarged prostate
Off IV fluids
- Follow fever curve and monitor for clinical improvement / return to baseline.
- Has remained afebrile for the past 24 hours, anticipate transition to oral antibiotics for discharge home tomorrow 07/24, discussed with patient's daughter who is in agreement with the plan
ASCVD
- Stable. No noted chest pain or dyspnea.
- Paced rhythm.
- Continue current CV medication regimen.
Alzheimer's Dementia
- Follow for acute agitation / delirium during hospital stay.
- Continue Aricept / Namenda and trazodone.
DVT Prophylaxis: SCDs
Code Status: DNI
Anticipated Discharge: 24 - 48 hours
Subjective/Interval History
-
Date of Service: July 23, 2025
Patient was seen and examined at bedside this morning. No discomfort, no complaints. Has been afebrile for the past 24 hours.
Objective Data
-
Labs:
Laboratory Results
07/23/25
06:21
WBC 5.6
Hgb 11.9 L
Hct 33.7 L
Plt Count 165
Sodium 134 L
Potassium 3.2 L
Chloride 106
Carbon Dioxide 26
BUN 15
Creatinine 0.6 L
Glucose 119 H
Calcium 8.4
Vital Signs:
Vital Signs
Temp Pulse Resp BP Pulse Ox
98.2 F 64 18 133/60 99
07/23/25 07:47 07/23/25 07:47 07/23/25 07:47 07/23/25 07:47 07/23/25 08:40
I&O
07/22/25 07/23/25 07/24/25
06:59 06:59 06:59
Intake Total 600 / 600 780 / 780
Balance 600 / 600 780 / 780
Review of Systems
-
History Source: Patient
All other systems: Reviewed and negative
Physical Exam
-
General: No Apparent Distress
[2025-07-23 15:38] VITALS: BP 116/65
[2025-07-23] MEDS: LIPITOR 80 MG PO (21:11)
[2025-07-23] MEDS: DESYREL 50 MG PO (21:11)
[2025-07-23 23:12] VITALS: BP 140/77
[2025-07-24] MEDS: STERILE WATER FOR INJECTION 10 ML IV (06:56)
[2025-07-24] MEDS: ROCEPHIN 1000 MG IV (06:56)
[2025-07-24 07:09] VITALS: BP 167/78
[2025-07-24] MEDS: NAMENDA 10 MG PO (07:27)
[2025-07-24] MEDS: FOLVITE 1 MG PO (07:27)
[2025-07-24] MEDS: LOPRESSOR 25 MG PO (07:27)
[2025-07-24] MEDS: ARICEPT 10 MG PO (07:27)
[2025-07-24] MEDS: LEXAPRO 15 MG PO (07:28)
[2025-07-24] MEDS: PLAVIX 75 MG PO (07:28)
[2025-07-24] MEDS: ASPIR LOW (ENTERIC COATED) 81 MG PO (07:28)
--- NOTE | 2025-07-24 09:09 | W.DCSUMMARY ---
Discharge Summary
Discharge Data
Date of Admission: 07/19/25
Date of Discharge: 07/24/25
Total time spent discharging patient (in min): 45
-
Pending Results: No
Hospital Course
Mr. Ludwig is a 74-year-old male with a medical history of atherosclerotic cardiovascular disease (CABG x 5, stents), sick sinus syndrome (PPM), and Alzheimer's dementia who presented with fever, leukocytosis, and urinary incontinence. Urinalysis
and symptomatology was indicative of urinary tract infection. He was started on antibiotics and admitted for further evaluation and management. His urine cultures grew Klebsiella sensitive to ceftriaxone. He showed no evidence of hydronephrosis
or pyelonephritis on renal and bladder imaging. After being afebrile for more than 24 hours he was discharged to home to with a prescription for 2 more days of oral antibiotics to complete a total 7-day course.
General: No Apparent Distress, Comfortable and Conversant
HEENT: NormoCephalic, Moist mucous membranes, Atraumatic
Respiratory: Clear and Non Labored Respirations
Cardiac: S1/S2 and Regular Rhythm; No Rub or Gallop
GI: Soft, Non Tender, Non Distended and Normal Bowel Sounds
Musculoskeletal: No Edema, no deformity
: NO Galloway
Neuro: Awake, Alert, Nonfocal/grossly intact
Psych: Calm and cooperative
Discharge Plan
-
Patient Disposition: Home (Routine Discharge)
Discharge Diagnosis/Procedures: UTI
Condition: Good
Activity Restrictions/Additional Instructions:
You were admitted for treatment of altered mental status due to a urinary tract infection. You had intermittent fevers that improved with antibiotic treatment. Your presenting symptoms have now resolved. You will be discharged to home with a
prescription for 2 more days of oral antibiotics. You should follow-up closely with your primary care physician.
Referrals:
Rangel Jain MD [Family Provider, Internal Medicine]
Prescriptions:
New
cefpodoxime 200 mg tablet
200 mg PO BID 2 Days Qty: 4 0RF
Continued
atorvastatin 80 mg tablet
80 mg PO HS
trazodone 50 mg tablet
50 mg PO HS
donepezil 10 mg tablet
10 mg PO DAILY
clopidogrel 75 mg tablet
75 mg PO DAILY
folic acid 1 mg tablet
1 mg PO DAILY
escitalopram oxalate 10 mg tablet
15 mg PO DAILY
metoprolol tartrate 25 mg tablet
25 mg PO BID
icosapent ethyl [Vascepa] 1 gram capsule
2 g PO BID
memantine 21 mg capsule,sprinkle,ER 24hr
21 mg PO HS
meclizine 12.5 mg Tablet
12.5 mg PO BID
acetylcarnitine HCl 250 mg Capsule
500 mg PO TID
alpha lipoic acid 600 mg Tablet
600 mg PO DAILY
Discharge Orders:
Discharge Patient (As Directed); Ordered 07/24/25
Ordered By: Gene Jones
Discharge Date and Time
Discharge Date/Time: 07/24/25 11:47
Print Language: ANGOLAN
[2025-07-24 11:42] VITALS: BP 128/64
== END 2025-07-24 11:47 | disposition home health service (06) | DRG 689 ==
LOC: 4 WEST ACU 19:52
PROVIDERS: Internal Medicine; Physician Assistant; Student in an Organized Health Care Education/Training Program; ADMITTING PHYSICIAN Hospitalist; ATTENDING PHYSICIAN Internal Medicine; EMERGENCY PHYSICIAN Student in an Organized Health Care Education/Training Program; FAMILY PHYSICIAN Internal Medicine
DX: N39.0 Urinary tract infection, site not specified (principal); G92.8 Other toxic encephalopathy; B96.1 Klebsiella pneumoniae [K. pneumoniae] as the cause of diseases classified elsewhere; I25.10 Atherosclerotic heart disease of native coronary artery without angina pectoris; G30.9 Alzheimer's disease, unspecified; F02.80 Dementia in other diseases classified elsewhere, unspecified severity, without behavioral disturbance, psychotic disturbance, mood disturbance, and anxiety; I49.5 Sick sinus syndrome; Z11.52 Encounter for screening for COVID-19; Z79.899 Other long term (current) drug therapy; Z87.891 Personal history of nicotine dependence; Z95.1 Presence of aortocoronary bypass graft; Z95.5 Presence of coronary angioplasty implant and graft
CPT/HCPCS: 70450; 71046; 76770; 80048; 80053; 81003; 81015; 83605; 84484; 85025; 85027; 86803; 87040; 87077; 87086; 87186; 87502; 87811; 92610; 93005; 97110; 97116; 97162; 97166; 97530; 97535

== ENCOUNTER 2025-08-30 05:46 | Inpatient (IN) | payer MEDICARE, OTHER, SELFPAY ==
[2025-08-30] VITALS (15 sets, daily range): BP systolic 86–132; BP diastolic 40–63; PULSE 68–78; O2SAT 97; BMI 25.3
--- NOTE | 2025-08-30 02:38 | ED.GENMED ---
History of Present Illness
<Sheridan Dennis PA-C - Last Filed: 08/30/25 05:24>
General
Chief Complaint: Abdominal Symptoms
Source: patient
Exam Limitations: none
Time Seen by Provider: 08/30/25 02:36
Nursing documentation reviewed up to this point in time: agreed with
History of Present Illness
History of Present Illness:
Note:
CHIEF COMPLAINT(S)
Difficulty standing and recurrent episodes of fainting possibly related to diarrhea and recent pacemaker adjustment.
HISTORY OF PRESENT ILLNESS
The patient is a 74-year-old male with a history of alzheimer's disease, CAD, HTN, HLP pace, SSS s/p pacemaker presenting with episodes of fainting and generalized weakness. The fainting incidences happened twice, one after a bowel movement and the
other when he was just resting with the most recent episode occurring around 10 PM tonight. After this, EMS was called. She reports that he became so weak and was unable to stand on his own. Patient speaks Mosoth[place] and with his Alzheimer's disease,
joseie reports he does not speak much at baseline and usually communicates pain with facial expressions. reports that the patient is also experiencing diarrhea and was given imodium by his family doctor which has not helped. There has been no
reported abdominal pain or blood in the stool, although patient looked uncomfortable at times. He has not had a fever. The patient recently completed a course of antibiotics for a urinary tract infection a few weeks ago. A family member indicated
concern for potential dehydration due to diarrhea, although attempts have been made to encourage fluid intake. During transport by EMS, the patient exhibited a rapid heart rate consistent with ventricular tachycardia (VT), although there was no
report of chest discomfort or conscious awareness of discomfort by the patient. This seemed to resolve and no interventions were initiated by EMS.
He follows with Dr. John Goel for cardiology.
PAST MEDICAL AND SURGICAL HISTORY
Recent pacemaker implantation. The surgical procedure was performed at [facility] under the care of cardiology at a different facility.
SOCIAL DETERMINANTS AFFECTING HEALTH
The patient has been experiencing fatigue and decreased fluid intake, potentially impacting his overall health and ability to care for himself. Support from family members is noted in encouraging fluid intake and ensuring adequate care.
PHYSICAL EXAM
General: Alert, no acute distress. Hypotensive upon arrival.
Skin: Warm, dry.
Head: Normocephalic, atraumatic.
Neck: Supple, trachea midline.
Eyes, Ears, Nose, Throat: Mucous membranes dry.
Cardiovascular: Regular rate, no murmurs. Normal peripheral perfusion, No edema.
Respiratory: Respirations are non-labored. No wheezes, rhonchi.
Gastrointestinal: Abdomen nondistended. No palpable masses, no clear tenderness upon palpation.
Back: Normal range of motion, Normal alignment.
Musculoskeletal: Normal range of motion, normal strength.
Neurological: CN II-XII intact. Alert and oriented to person, place, time, and situation, No focal neurological deficit observed.
Psychiatric: Cooperative, appropriate mood & affect.
PROBLEM LIST
Acute:
- Recurrent syncope
- Diarrhea
- Ventricular tachycardia
Chronic:
- Pacemaker dependency
PLAN
The patient is to be assessed with further diagnostic tests to determine the extent and cause of symptoms, including evaluation for possible dehydration-related issues and any abnormal heart rhythms. Consider hospital admission for further
monitoring and management, especially given his profound weakness.
UPDATE
-4:03 am--Awaiting pacemaker report
-No further dysrhythmic events in the ER
DIFFERENTIAL DIAGNOSIS
The differential diagnosis includes, in no particular order and is not limited to:
1. Dehydration secondary to diarrhea
2. Vasovagal syncope
3. Pacemaker malfunction
4. Orthostatic hypotension
5. Ventricular tachycardia
6. Myocardial infarction
7. Electrolyte imbalance
8. Acute gastroenteritis
9. Side effects of recent antibiotic therapy
10. Atrial fibrillation with rapid ventricular response
CHART REVIEW
Reviewed discharge summary from 07/24/2025, patient seen for UTI
Reviewed external medical summary, reviewed notes from June 16, 2025,
Severe coronary artery disease status post CABG at [facility] with multiple PCI since then patient currently asymptomatic he does have a history of sick sinus syndrome and did have pacemaker placed Biotronik
LABS
Leukocytosis noted, hyponatremia, elevated BUN, potassium normal
Troponin undetectable
ECG
Rhythm strips from EMS reviewed, V. tach noted
ECG shows atrial paced rhythm with rate of 66, normal QT
MDM/DISPOSITION
74-year-old male presents to the ER today with concerns of multiple syncopal episodes in the setting of diarrheal illness. He has had no fever. Minimal abdominal pain. Physical exam he is well-appearing no acute distress. He is hypotensive upon
arrival in the ER. And route to the ER, he did go into ventricular tachycardia. This resolved on its own without intervention.
He went for CAT scan which revealed pancolitis. Likely infectious in nature considering lactic acid normal. He will be started on Zosyn. Will give further IV fluids. Blood pressure improving. Patient is afebrile.
Biotronik pacemaker interrogation pending. Troponin undetectable.
Patient has no chest pain or palpitations at this time.
Patient will require admission to the hospital. Case discussed with hospitalist. ED attending aware.
Review of Systems
<Sheridan Dennis PA-C - Last Filed: 08/30/25 05:24>
Review of Systems
All Other Systems: ROS reviewed and negative except as documented in HPI and ROS
Phy Exam
<Sheridan Dennis PA-C - Last Filed: 08/30/25 05:24>
Physical Exam
Physical Exam:
see hpi
Course
<Sheridan Dennis PA-C - Last Filed: 08/30/25 05:24>
Orders/Labs/Results
Orders:
Orders
08/30/25 02:22
Electrocardiogram (*1) Urgent
Reason for Study: Other
Other Reason for Exam: arrythmia
08/30/25 02:24
EKG- Treatment ONCE
08/30/25 02:35
Complete Blood Count/With Diff Urgent
Comprehensive Metabolic Panel Urgent
Comment: CHANGED FROM BMP TO COMP
Magnesium Urgent
Comment: ADDED
08/30/25 02:44
Add On- LAB Urgent
Tests Added?: CMP instead of BMP
08/30/25 02:56
Add On- LAB Urgent
Tests Added?: magnesium
08/30/25 02:57
CT Abd/pelvis W Iv Cont Urgent
Comment:
Reason For Exam: intermittent left ab pain, diarrhea
C DIFF [C difficile Antigen & Toxins] Urgent
TETE Source: Feces/Stool
Specimen Description:
Stool Culture Urgent
TETE Source: Feces/Stool
Specimen Description:
0.9% Sodium Chloride 1000 ml [Nss] 1,000 ml IV BOLUS
08/30/25 03:17
Troponin I Urgent
08/30/25 04:06
Lactic Acid Urgent
08/30/25 04:45
0.9% Sodium Chloride 1000 ml [Nss] 1,000 ml IV BOLUS
08/30/25 05:15
Piperacillin/Tazo 3.375 Gram [Zosyn] 3.375 gram in 50 ml IV NOW
Abnormal Lab Results
08/30/25
02:35
WBC 15.0 H 10^3/uL
(4.8-10.8)
RBC 4.40 L 10^6/uL
(4.70-6.10)
Hct 37.2 L %
(39.0-52.0)
Abs Immat Gran (auto) 0.1 H 10^3/uL
(0-0.05)
Absolute Neuts (auto) 10.3 H 10^3/uL
(1.4-6.5)
Absolute Monos (auto) 1.3 H 10^3/uL
(0.1-0.6)
Lymphocytes % 20.2 L %
(20.5-51.1)
Sodium 128 L mmol/L
(135-145)
BUN 22 H mg/dl
(9-20)
Glucose 111 H mg/dl
(70-99)
Total Protein 5.8 L g/dl
(6.3-8.2)
Albumin 3.2 L g/dl
(3.5-5.0)
08/30/25 02:35
08/30/25 02:35
Vital Signs
Initial and Last Documented VS:
Initial Vital Signs
Temp Pulse Resp BP Pulse Ox
98.0 F 78 10 87/51 92
08/30/25 02:26 08/30/25 02:26 08/30/25 02:26 08/30/25 02:26 08/30/25 02:26
Last Documented Vital Signs
Temp Pulse Resp BP Pulse Ox
98.0 F 63 14 96/51 96
08/30/25 02:26 08/30/25 04:00 08/30/25 04:00 08/30/25 04:00 08/30/25 04:00
<Amelia Huff, DO - Last Filed: 08/30/25 05:21>
Orders/Labs/Results
Orders:
Orders
08/30/25 02:22
Electrocardiogram (*1) Urgent
Reason for Study: Other
Other Reason for Exam: arrythmia
08/30/25 02:24
EKG- Treatment ONCE
08/30/25 02:35
Complete Blood Count/With Diff Urgent
Comprehensive Metabolic Panel Urgent
Comment: CHANGED FROM BMP TO COMP
Magnesium Urgent
Comment: ADDED
08/30/25 02:44
Add On- LAB Urgent
Tests Added?: CMP instead of BMP
08/30/25 02:56
Add On- LAB Urgent
Tests Added?: magnesium
08/30/25 02:57
CT Abd/pelvis W Iv Cont Urgent
Comment:
Reason For Exam: intermittent left ab pain, diarrhea
C DIFF [C difficile Antigen & Toxins] Urgent
TETE Source: Feces/Stool
Specimen Description:
Stool Culture Urgent
TETE Source: Feces/Stool
Specimen Description:
0.9% Sodium Chloride 1000 ml [Nss] 1,000 ml IV BOLUS
08/30/25 03:17
Troponin I Urgent
08/30/25 04:06
Lactic Acid Urgent
08/30/25 04:45
0.9% Sodium Chloride 1000 ml [Nss] 1,000 ml IV BOLUS
08/30/25 05:15
Piperacillin/Tazo 3.375 Gram [Zosyn] 3.375 gram in 50 ml IV NOW
Abnormal Lab Results
08/30/25
02:35
WBC 15.0 H 10^3/uL
(4.8-10.8)
RBC 4.40 L 10^6/uL
(4.70-6.10)
Hct 37.2 L %
(39.0-52.0)
Abs Immat Gran (auto) 0.1 H 10^3/uL
(0-0.05)
Absolute Neuts (auto) 10.3 H 10^3/uL
(1.4-6.5)
Absolute Monos (auto) 1.3 H 10^3/uL
(0.1-0.6)
Lymphocytes % 20.2 L %
(20.5-51.1)
Sodium 128 L mmol/L
(135-145)
BUN 22 H mg/dl
(9-20)
Glucose 111 H mg/dl
(70-99)
Total Protein 5.8 L g/dl
(6.3-8.2)
Albumin 3.2 L g/dl
(3.5-5.0)
08/30/25 02:35
08/30/25 02:35
Vital Signs
Initial and Last Documented VS:
Initial Vital Signs
Temp Pulse Resp BP Pulse Ox
98.0 F 78 10 87/51 92
08/30/25 02:26 08/30/25 02:26 08/30/25 02:26 08/30/25 02:26 08/30/25 02:26
Last Documented Vital Signs
Temp Pulse Resp BP Pulse Ox
98.0 F 63 14 96/51 96
08/30/25 02:26 08/30/25 04:00 08/30/25 04:00 08/30/25 04:00 08/30/25 04:00
<Sheridan Dennis PA-C - Last Filed: 08/30/25 05:24>
*Pulse Oximetry
SaO2: 92
Oxygen Mode of Delivery: Room air
Patient hypoxic: no
*Critical Care Note
Total Time (30-74mins, 75-104mins- exclusive of procedures): Not Applicable
ED Attending Note
<Sheridan Dennis PA-C - Last Filed: 08/30/25 05:24>
-
Portions of this chart may have been created with voice recognition software.� Occasional wrong word or��sound alike� substitutions may have occurred due to the inherent limitations of voice recognition software.
<Amelia Huff DO - Last Filed: 08/30/25 05:21>
ED Attending Note
Patient seen and examined by attending physician: Yes
I performed a history and physical exam of patient and discussed management with resident, I reviewed resident's note and agree with documented findings and plan of care.: Yes
ED Attending Note:
74-year-old gentleman with history of hypertension, hyperlipidemia, CAD, pacemaker, Alzheimer's dementia resides at home with his . Was hospitalized July 19 until July 24 for treatment of fever, leukocytosis related to UTI. Completed a
course of cefpodoxime 2 days after discharge on July 24. Was doing well until 3 days ago when he developed significant diarrhea which has been unresponsive to Imodium. He has had progressive weakness, increased confusion and tonight passed out
several times prompting 911 call. According to , despite loss of consciousness he did not fall nor injure himself, was in attendance at all times and assisted him to the ground.
While en route to the hospital, monitor captured a wide-complex tachycardic rhythm concerning for slow V. tach. Patient reportedly remained awake, asymptomatic and wide-complex tachycardia resolved spontaneously.
He has not been complaining of abdominal pain and has not had a fever.
He has had some persistent urinary urgency and states a follow-up urinalysis and culture performed 1 week ago was unremarkable. Unremarkable renal ultrasound with bladder performed during recent hospitalization in June.
74-year-old gentleman appears his stated age, awake and alert, oriented x 1. Pleasant and appears in no acute distress. Moderate hypotension noted initially. Initial blood pressure 87/51.
HEENT: Oral mucosa is moderately dry.
Heart is regular rate and rhythm.
Abdomen is soft, nondistended, no appreciable tenderness. Normoactive bowel sounds.
Concern for acute dehydration/acute kidney injury, acute electrolyte abnormality with resultant tacky arrhythmia as well as hypotension.
EKG shows paced rhythm. Similar to previous.
Thus far monitor shows paced rhythm. There has been no return of tacky arrhythmia.
Concern for infectious colitis, other consideration is ischemic colitis however has remained pain-free. Had been on antibiotics over a month ago, C. difficile colitis is conceivable but less likely.
IV fluids have been initiated. Labs are pending. Will plan for CT abdomen pelvis.
Due to recurrent syncopal events, tachyarrhythmia, hypotension, patient will require acute hospitalization for management of acute symptoms and continued monitoring.
05:15
Labs show elevated blood cell count of 15. Mild hypokalemia, otherwise electrolytes within normal limits. Normal magnesium. Normal creatinine 0.9, mildly elevated BUN of 22.
Mild hypotension persists with systolic blood pressure in the 90s. He continues to have no abdominal pain. No diarrhea since arrival to the ED.
CAT scan shows acute colitis, concern for infectious versus ischemic. Reassuring that lactic acid is normal at 1.3.
Monitor continues to show paced rhythm. No arrhythmia.
Will continue IV fluids, initiate IV antibiotics for coverage of potential infectious colitis.
Discharge Plan
Departure
Patient Disposition: Admit
Date of Disposition: 08/30/25
Time of Disposition: 05:05
Admit to: Telemetry
Presentation/result/management discussed w/ accepting MD/DO: Hospitalist
Discharge Problem:
Pancolitis, Syncope, Ventricular tachycardia
Prescriptions:
No Action
atorvastatin 80 mg tablet
80 mg PO HS
trazodone 50 mg tablet
50 mg PO HS
donepezil 10 mg tablet
10 mg PO HS
clopidogrel 75 mg tablet
75 mg PO DAILY
folic acid 1 mg tablet
1 mg PO DAILY
escitalopram oxalate 10 mg tablet
15 mg PO DAILY
metoprolol tartrate 25 mg tablet
25 mg PO BID
icosapent ethyl [Vascepa] 1 gram capsule
2 g PO BID
memantine 21 mg capsule,sprinkle,ER 24hr
21 mg PO HS
meclizine 12.5 mg Tablet
12.5 mg PO TID
cyanocobalamin (vitamin B-12) [Cyanacobalamin] 1,000 mcg/mL Solution
1,000 mcg SC QWEEK
Referrals:
Rangel Jain MD [Family Provider, Internal Medicine]
Interventions
Interventions:
*Risk Screen - Suicide Last Done: 08/30/25 02:26
*General Assessment Last Done: 08/30/25 02:26
*Neglect/Abuse Screening Last Done: 08/30/25 02:26
*ED COVID-19 Vaccine History Last Done: 08/30/25 02:26
*ED Influenza Vaccine History Last Done: 08/30/25 02:26
[facility] Fall Risk Assessment Tool Last Done: 08/30/25 04:33
JZ-[id number]-Pivajwonfi Assessment Last Done: 08/30/25 02:40
Discharge Date and Time
Print Language: HONG KONGER
[2025-08-30 02:45] LABS: Hematocrit 37.2 % (39.0-52.0); Hemoglobin 13.1 g/dL (13.0-18.0); Mean Corp Hgb Conc. 35.2 g/dL (33.0-37.0); Mean Corpuscular Volume 84.5 fL (80.0-94.0); Nucleated Red Blood Cells % 0 % (-); Platelet Count 223 10^3/uL (130-400); Red Cell Dist. Width 13.2 % (11.5-14.5)
[2025-08-30] MEDS: NSS 1000 IV ×4 (03:15→16:30)
[2025-08-30 03:41] LABS: ALT (SGPT) 20 U/L (0-50); AST (SGOT) 21 U/L (17-59); Albumin 3.2 g/dl (3.5-5.0); Alkaline Phosphatase 68 U/L (38-126); Blood Urea Nitrogen 22 mg/dl (9-20); Calcium 9.2 mg/dl (8.4-10.2); Carbon Dioxide 26 mmol/L (22-30); Chloride 98 mmol/L (98-107); Estimated Creatinine Clearance 65 ml/min; Glucose 111 mg/dl (70-99); Magnesium 1.7 mg/dl (1.6-2.3); Potassium 4.1 mmol/L (3.5-5.1); Sodium 128 mmol/L (135-145); Total Protein 5.8 g/dl (6.3-8.2); eGFR > 60.00
[2025-08-30 04:15] LABS: Troponin I < 0.012 ng/ml
[2025-08-30] MEDS: ZOSYN 50 IV ×2 (05:34→11:47)
--- NOTE | 2025-08-30 05:38 | HPS.HSE ---
Family Physician
-
Family Physician: Rangel Jain
Chief Complaint
-
Diarrhea, Syncope, Weakness
History of Present Illness
Patient is a 74y M with PMH significant for ASCVD, dementia and prior hospitalization for UTI who presents to ED for evaluation of diarrhea, weakness and syncope. History obtained from patient and his at the bedside with serving as
automobile rental agent. Patient was hospitalized 07/19 - 07/24 secondary to UTI. He was treated with abx during that admission. states that he received an additional 1 week of abx after discharge for persistent urinary symptoms. He developed diarrhea.
He was given a Rx for loperamide by his PCP which he took for several days with improvement in the diarrhea.
Patient was doing well until about 4-5 days ago when his diarrhea returned. reports 5-8 episodes per day of bright yellow, liquid / soft stool diarrhea.
She started giving him the loperamide again about 2-3 days ago - but with no improvement in his diarrhea.
Patient has had a few episodes of briefly losing consciousness - including 2 episodes in the past 24 hours. This evening he was completely unable to stand to get to the bathroom and his called 911.
He has not complained of abdominal pain; however, it is very rare for him to ever complain of pain.
He does complain of persistent / frequent urinary urgency.
A urinalysis and renal / bladder US was done about one week ago due to his recurrent / persistent urinary complaints and these were reportedly unremarkable.
En route to the ED, sub plant manager noted that patient had run of V-Tach. This was resolved by arrival here. He received no specific medications per report.
EMS rhythm strips are scanned in the chart.
In the ED, patient has been in sinus rhythm or A-paced rhythm.
Medical History
Past Medical History
Past Medical History: Reports Other
Additional Past Medical History:
ASCVD
SSS
Alzheimer's Dementia
Past Surgical History: Reports Other
Additional Past Surgical History:
CABG x 5
PTCA with Stents
PPM Placement
Social History
Tobacco: Former Smoker (Quit smoking 7 years ago.)
Alcohol: None
Drug: None
Living: With Family
Family History
Family History: Not pertinent
Allergies / Home Medications
Allergies reflects when Allergies were last updated in [facility].
Home Medications with original date entered in [facility]
Allergy/Medication List:
Allergies
Allergy/AdvReac Type Severity Reaction Status Date / Time
No Known Allergies Allergy Verified 08/30/25 02:36
Home Medications
atorvastatin 80 mg tablet 80 mg PO HS High Cholesterol 07/19/25
clopidogrel 75 mg tablet 75 mg PO DAILY Blood Clot Prevention/Tx 07/19/25
donepezil 10 mg tablet 10 mg PO HS Mental Health/Anxiety 07/19/25
escitalopram oxalate 10 mg tablet 15 mg PO DAILY Mental Health/Anxiety 07/19/25
folic acid 1 mg tablet 1 mg PO DAILY Supplement 07/19/25
icosapent ethyl 1 gram capsule (Vascepa) 2 g PO BID High Cholesterol 07/19/25
meclizine 12.5 mg tablet 12.5 mg PO TID DIZZINESS 07/19/25
memantine 21 mg capsule sprinkle,extended release 24hr 21 mg PO HS Mental Health/Anxiety 07/19/25
metoprolol tartrate 25 mg tablet 25 mg PO BID Blood Pressure 07/19/25
trazodone 50 mg tablet 50 mg PO HS Mental Health/Anxiety 07/19/25
cyanocobalamin (vitamin B-12) 1,000 mcg/mL injection solution 1,000 mcg SC QWEEK 08/30/25
Review of Systems
-
Unable to obtain full review of systems at this time due to: Dementia
History Source: Family
Constitutional: Reports Fatigue; Denies Fever
Cardiac: Denies Chest Pain
Abdomen/GI: Reports Diarrhea; Denies Abdominal Pain, Nausea or Vomiting
: Reports Frequency and Urgency; Denies Dysuria or Bleeding
Neurological: Reports Dizzy; Denies Headache
Psych: Reports Dementia; Denies Depression or Anxiety
Physical Exam
Vital Signs
Vital Signs
Temp Pulse Resp BP Pulse Ox
98.0 F 63 14 96/51 96
08/30/25 02:26 08/30/25 04:00 08/30/25 04:00 08/30/25 04:00 08/30/25 04:00
Physical Exam
General: Other (74y M in no distress.)
HEENT: Other (Dry MM. Neck supple.)
Respiratory: Clear; No Wheezes, Rales or Rhonchi
Cardiac: S1/S2 and Regular Rhythm (with ectopy); No Murmur
GI: Soft, Non Tender, Non Distended and Normal Bowel Sounds
Musculoskeletal: No Clubbing, No Cyanosis and No Edema
Neuro: Awake, Alert and Nonfocal/grossly intact; No Oriented
Psych: Apparent Dementia
Laboratory Results
-
08/30/25 02:35
08/30/25 02:35
Laboratory Results
Lactic Acid 1.3 mmol/L (0.7-2.0) 08/30/25 04:06
Total Bilirubin 1.1 mg/dl (0.2-1.3) 08/30/25 02:35
AST 21 U/L (17-59) 08/30/25 02:35
ALT 20 U/L (0-50) 08/30/25 02:35
Alkaline Phosphatase 68 U/L (38-126) 08/30/25 02:35
Troponin I < 0.012 ng/ml 08/30/25 03:17
Impression/Plan
-
A/P: Patient is a 74y M with PMH significant for ASCVD and dementia who presents to ED for evaluation of diarrhea, weakness and fatigue.
Pancolitis
Sepsis secondary to the above
Hypotension secondary to the above
- Admit for further evaluation and treatment.
- Profuse diarrhea with pancolitis seen on CT report.
- Infectious v ischemic. Lactate level is normal.
- Patient with organ dysfunction in the form of hypotension with initial SBP < 90 requiring IVF resuscitation.
- Recent abx use raises concern for CDiff colitis. Will cover with oral vancomycin pending CDiff toxin assay.
- IV Zosyn for alternate etiologies of colitis and follow up typical stool studies.
- IVF / volume replacement for hypotension / recurrent syncope.
- Avoid further antidiarrheal medications pending culture data.
- Follow for clinical improvement.
Recurrent Syncope
V-Tach
- reports multiple episodes of brief loss of consciousness.
- Potentially secondary to volume loss / hypotension due to diarrheal illness as noted above.
- ? arrhythmia as well given VT noted by EMS.
- Monitor on telemetry. PPM interrogation in the ED is pending.
- Labs /lytes unremarkable (dose of Mg given for low-normal magnesium level).
- Hold QT prolonging medications.
- Treat colitis as noted above. IVFs / volume replacement.
- Cardiology evaluation for additional recommendations.
Hyponatremia
- Likely secondary to GI losses and increased water replacement.
- notes that she has been encouraging water intake due to his diarrhea.
- IVF / volume replacement as noted above.
- Check urine studies for completeness.
- Follow for improvement.
ASCVD
- Stable. No noted chest pain or dyspnea.
- Paced rhythm.
- Continue current CV medication regimen.
Alzheimer's Dementia
- Follow for acute agitation / delirium during hospital stay.
- Hold QT prolonging meds (Aricept, Lexapro) given VT issues noted above.
DVT Prophylaxis: SCDs
Code Status: DNI
[2025-08-30] MEDS: MAGNESIUM SULFATE 102 GRAMS IV ×2 (06:08→10:56)
[2025-08-30] MEDS: FIRVANQ 125 MG PO ×3 (07:50→18:35)
[2025-08-30] MEDS: FLOMAX 0.4 MG PO (07:52)
[2025-08-30] MEDS: PLAVIX 75 MG PO (07:52)
[2025-08-30] MEDS: NAMENDA 10 MG PO ×2 (07:52→20:51)
[2025-08-30] MEDS: FOLVITE 1 MG PO (07:52)
[2025-08-30] MEDS: ANTIVERT 12.5 MG PO ×3 (07:52→20:51)
--- NOTE | 2025-08-30 10:07 | CON.CAR ---
Consultation
Consultation Request
Date/Time Consultation Requested: 08/30/2025
Reason for Consultation: VT
Medical History
-
Chief Complaint: Syncope
History of Present Illness:
74-year-old gentleman with a history of coronary disease status post CABG x 5, sick sinus syndrome status post dual-chamber pacemaker (2018-Biotronik) at [facility], advanced dementia, with recent hospitalization with urinary tract infection
who was discharged on antibiotics presented with diarrhea, weakness and syncope.
He presented with leukocytosis, and diarrhea with recent urinary tract infection. CT scan was done that showed prostate abscess. On his way to the hospital, paramedics recorded multiple tracings of wide-complex tachycardia consistent with
ventricular tachycardia. He did have episodes of syncope at home. At the time of arrival he was noted to be hypomagnesemia and hyponatremia. He was hypokalemic during his previous hospitalization but potassium was within normal limits at the time of
arrival.
Patient's hyponatremia thought to be volume depletion due to diarrhea and was given IV fluids. Cardiology was consulted for the concern for syncope and ventricular arrhythmia.
Patient is demented and not able to provide any history. History was obtained from the family.
Past Medical History
Past Medical History: CAD (Coronary disease status post CABG X5, history of PTCA with stents, sick sinus syndrome status post dual-chamber pacemaker-Biotronik) and Other (Alzheimer's dementia, UTI)
Past Surgical History: Cardiac (CABG, PCI with stents, pacemaker)
Social History
Tobacco: Former Smoker
Alcohol: None
Drug: None
Living: With Family
Family History
Family History: Reviewed & Not Pertinent
Allergies / Home Medications
Allergy/AdvReac Type Severity Reaction Status Date / Time
No Known Allergies Allergy Verified 08/30/25 02:36
�Medication �Instructions �Recorded �Confirmed �Type
atorvastatin 80 mg tablet 80 mg PO HS High Cholesterol 07/19/25 08/30/25 History
clopidogrel 75 mg tablet 75 mg PO DAILY Blood Clot 07/19/25 08/30/25 History
Prevention/Tx
donepezil 10 mg tablet 10 mg PO HS Mental Health/Anxiety 07/19/25 08/30/25 History
escitalopram oxalate 10 mg tablet 15 mg PO DAILY Mental 07/19/25 08/30/25 History
Health/Anxiety
folic acid 1 mg tablet 1 mg PO DAILY Supplement 07/19/25 08/30/25 History
icosapent ethyl 1 gram capsule 2 g PO BID High Cholesterol 07/19/25 08/30/25 History
(Vascepa)
meclizine 12.5 mg tablet 12.5 mg PO TID DIZZINESS 07/19/25 08/30/25 History
memantine 21 mg capsule 21 mg PO HS Mental Health/Anxiety 07/19/25 08/30/25 History
sprinkle,extended release 24hr
metoprolol tartrate 25 mg tablet 25 mg PO BID Blood Pressure 07/19/25 08/30/25 History
trazodone 50 mg tablet 50 mg PO HS Mental Health/Anxiety 07/19/25 08/30/25 History
cyanocobalamin (vitamin B-12) 1,000 mcg SC QWEEK 08/30/25 08/30/25 History
1,000 mcg/mL injection solution
Review of Systems
-
Unable to obtain full review of systems at this time due to: Dementia
History Source: Patient and Family
All other systems: Negative unless noted
Physical Exam
Vital Signs
Temp Pulse Resp BP Pulse Ox
97.6 F 72 18 99/50 93
08/30/25 06:42 08/30/25 06:42 08/30/25 06:42 08/30/25 06:42 08/30/25 06:42
Lab Results
08/30/25 02:35
08/30/25 02:35
Troponin I < 0.012 ng/ml 08/30/25 03:17
Physical Exam
General: Well Developed, Well Nourished, No Apparent Distress and Comfortable
HEENT: Normocephalic and Anicteric
Respiratory: Clear and Non Labored Respirations
Cardiac: S1/S2 and Regular Rhythm; Negative Murmur
GI: Soft, Non Tender, Non Distended and Normal Bowel Sounds
Musculoskeletal: No Clubbing, No Cyanosis and No Edema
Skin: Warm and Dry
Neuro: Awake, No Motor Deficits and Nonfocal/Grossly Intact
Psych: Confused
Impression / Plan
-
74-year-old gentleman with history of coronary disease status post CABG and PCI with stents, sick sinus syndrome with dual-chamber pacemaker presented with syncope and ventricular arrhythmia in the setting of septicemia with recent complex urinary
tract infection and diarrhea.
Ventricular arrhythmia
- Patient's tracings were reviewed personally.
- The tracings are consistent with ventricular arrhythmia with fusion beats and A-V dissociation.
- The VT was slow.
- Device interrogation was done personally and did not show any recordings of the ventricle or tachy arrhythmia. The device was set to record any arrhythmia above 180 bpm.
- Pacemaker was reprogrammed to record rhythms above 150 bpm now.
- Patient's ventricular arrhythmia could be related to his coronary disease with ischemia and demand ischemia with hypotension due to his septicemia/sepsis.
- We will obtain echocardiogram to rule out any structural heart disease.
- With ongoing infectious reasons, we will delay the ischemic workup and refer to their primary automotive finance manager if needs to be done as an outpatient.
- Will start patient on amiodarone IV bolus and p.o. twice daily for loading.
- We will supplement magnesium.
- Recheck electrolytes to keep potassium above 4.0 and magnesium above 2.0. Patient's creatinine is within normal limits.
- Volume depletion needs to be treated with IV fluids as already being done. Correct hyponatremia with fluids.
- Continue metoprolol 25 mg twice a day and amiodarone.
Urinary tract infection
- Appears septic with leukocytosis, hypotension. CT scan is consistent with prostate abscess.
- With recent antibiotic use and diarrhea, rule out C. difficile.
- Consider addition of Flagyl.
Coronary artery disease
- No sign of ischemia. Troponin is negative.
- History of coronary disease and CABG.
- Echo.
Data Reviewed
-
EKG: Tracing Personally Visualized and interpreted and Report Reviewed by me
Medical Tests (Nuc Med, Echo etc): Discussed with Family
Labs: Labs Reviewed by me, Discussed with Physician and Discussed with Nurse
Old Records: Reviewed
--- NOTE | 2025-08-30 10:07 | W.PN.HOSP.TC ---
Today's Communication/Plan
-
Stool for C. difficile and culture if available
Empiric antibiotics
IV fluids
Workup for hyponatremia including TSH and urine osmolarity
Echo
Telemetry
Serial cardiac markers
Mg level
Assessment / Plan
Assessment / Plan
Impression
Patient is a 74y M with PMH significant for ASCVD and dementia who presents to ED for evaluation of diarrhea, weakness and fatigue.
Pancolitis
Sepsis secondary to above
Hypotension secondary to above as well as dehydration with GI losses
Syncope
Nonsustained ventricular tachycardia while in the ED
Hyponatremia
Recent hospitalization with urinary tract infection
Conditions prior to admission
ASCVD
Dementia Alzheimer type
Imaging
CT abdomen and pelvis with IV contrast only
IMPRESSION:
1. Acute colitis extending from cecum to the sigmoid colon. No signs of abscess formation. Infectious and inflammatory etiologies are the most likely differential considerations.
2. Mild intrahepatic biliary dilation, indeterminate etiology.
3. Enlarged, heterogeneous prostate gland as above. Mild urinary bladder wall thickening, question outlet obstruction.
Plan
Pancolitis
Sepsis secondary to above present on admission
Hypotension multifactorial due to above as well as dehydration with GI losses.
Recent hospitalization for urinary tract infection completed course of antibiotics
Presenting with profuse diarrhea and CT scan findings as above.
Reasonable concern for C. difficile infection versus other, less likely ischemic colitis given extensive colon involvement.
Stool for C. difficile, stool cultures pending.
Initiated empirically on oral vancomycin and IV Zosyn
Continue IV fluids, isotonic solution.
Avoid further antidiarrheal medications pending culture data.
BRAT diet
Recurrent syncope at home.
Suspect secondary to dehydration.
Noted nonsustained VT in the emergency room.
Twelve-lead ECG with atrial paced rhythm. Nonspecific T wave abnormality
Continue telemetry monitoring.
Limited historian, although denies any chest pain.
Trace troponin
Echocardiogram
Monitor electrolytes. Magnesium level pending.
Continue preadmission regimen including beta-blockers once BP allows
Hyponatremia. Sodium 128
Suspect hypovolemia secondary to GI losses.
Update TSH
Check urinalysis
Continue isotonic solution follow BMP closely
Recent UTI.
BPH with concern for bladder outlet obstruction on imaging.
Bladder scan for retention.
ASCVD.
Episodes of VT as above.
Continue preadmission regimen including metoprolol, Plavix, atorvastatin, Vascepa.
Dementia Alzheimer type.
Monitor for acute agitation/delirium during hospital stay.
Preadmission regimen including trazodone, memantine, Lexapro, Aricept.
Given nonsustained VT, holding home QT prolonging medications including Aricept and Lexapro
DVT Prophylaxis: SCDs
Code Status: DNI
Anticipated Discharge: 24 - 48 hours
Subjective/Interval History
-
Date of Service: August 30, 2025
Objective Data
-
Labs:
Laboratory Results
08/30/25
02:35
WBC 15.0 H
Hgb 13.1
Hct 37.2 L
Plt Count 223
Sodium 128 L
Potassium 4.1
Chloride 98
Carbon Dioxide 26
BUN 22 H
Creatinine 0.9
Glucose 111 H
Calcium 9.2
Total Bilirubin 1.1
AST 21
ALT 20
Alkaline Phosphatase 68
Vital Signs:
Vital Signs
Temp Pulse Resp BP Pulse Ox
97.6 F 72 18 99/50 93
08/30/25 06:42 08/30/25 06:42 08/30/25 06:42 08/30/25 06:42 08/30/25 06:42
Physical Exam
-
General: Well Developed and No Apparent Distress
HEENT: Normocephalic, Atraumatic and Moist Mucous Membranes
Respiratory: Clear to Auscultation
Cardiac: Regular Rhythm and S1/S2; Negative Murmur, Rub or Gallop
GI: Soft, Nontender, Nondistended and Normal Bowel Sounds; Negative Organomegaly
Rectal: Deferred by Provider
Musculoskeletal: No Clubbing, No Cyanosis and No Edema
Skin: Negative Rash
Neuro: Awake, Alert, Oriented (To name only at the baseline) and Nonfocal/Grossly Intact
--- NOTE | 2025-08-30 10:24 | W.CARD.DEVCH ---
Cardiac Device Check
-
Device: Pacemaker
Forest Fire Prevention Manager: [employer]
The patient's device was interrogated personally. The device had normal function. No abnormalities seen.
There was no arrhythmia recordings noted. The setting is changed to record arrhythmia above 150 bpm going forward.
[2025-08-30 10:25] LABS: Hepatitis C Antibody Negative (Negative)
[2025-08-30] MEDS: CORDARONE 103 MG IV (10:49)
[2025-08-30] MEDS: LOPRESSOR 25 MG PO (10:56)
[2025-08-30 12:06] LABS: Troponin I 0.015 ng/ml
[2025-08-30 12:30] LABS: TSH 0.83 uIU/ml (0.47-4.68)
--- NOTE | 2025-08-30 14:49 | CM ---
Met with primary contact/, Peace, at beside; Per Peace, she and patient have been for many years
IMM benefit explained; form signed @ [id number]
Pharmacy verified: [facility] @ [address]
Patient has been living in 's home with her and their son for the past one and a half years; one floor home; bath has stall shower w/ shower chair
PLOF: needs assistance with personal care and ADLs; needs to be reminded to walk with Rolling Walker; also has a Rollator
No SNF utilization history
Current with [facility], PT
Family will provide transport home
Plan: Discharge to home with resumption of [facility] services
[2025-08-30] MEDS: LIPITOR 80 MG PO (20:49)
[2025-08-30] MEDS: DESYREL 50 MG PO (20:52)
[2025-08-30] MEDS: LOPRESSOR PO (20:52)
[2025-08-30] MEDS: PACERONE 400 MG PO (21:02)
[2025-08-31] MEDS: FIRVANQ 125 MG PO ×5 (00:34→23:25)
[2025-08-31] MEDS: NSS 1000 IV ×3 (02:42→18:47)
[2025-08-31 03:06] VITALS: BP 110/60
[2025-08-31 07:47] VITALS: BP 100/73
[2025-08-31] MEDS: FOLVITE 1 MG PO (09:32)
[2025-08-31] MEDS: PLAVIX 75 MG PO (09:32)
[2025-08-31] MEDS: NAMENDA 10 MG PO ×2 (09:32→20:43)
[2025-08-31] MEDS: FLOMAX 0.4 MG PO (09:32)
[2025-08-31] MEDS: ANTIVERT 12.5 MG PO ×3 (09:32→20:42)
[2025-08-31] MEDS: PACERONE 400 MG PO ×2 (09:32→20:52)
[2025-08-31 09:36] LABS: Hematocrit 32.2 % (39.0-52.0); Hemoglobin 11.1 g/dL (13.0-18.0); Mean Corp Hgb Conc. 34.5 g/dL (33.0-37.0); Mean Corpuscular Volume 85.0 fL (80.0-94.0); Nucleated Red Blood Cells % 0 % (-); Platelet Count 190 10^3/uL (130-400); Red Cell Dist. Width 13.2 % (11.5-14.5)
--- NOTE | 2025-08-31 09:42 | PN.CDI ---
CDI
- -
CDI:
Physician Documentation Request
Admit Date: 08/30/25 05:46
Dear Doctor,
[facility] is using an adapted version of the 2016 Third International Consensus Definitions for Sepsis and Septic Shock (Sepsis-3) where sepsis is defined as life threatening organ dysfunction caused by a deregulated host response to infection.
Please reference the official [facility] Sepsis Recognition Tool for further information, which can be found on the Intranet under Infection Prevention.
Clinical Indicators Include:
08/30 Hospitalist PN: 'Pancolitis, Sepsis secondary to above, Hypotension secondary to above as well as dehydration with GI losses...Initiated empirically on oral vancomycin and IV Zosyn'
BP: 87/51
RR: 10
WBC: 15.0
Based on your medical judgment, can you further clarify the diagnosis being monitored/treated this admission?
� Sepsis due to colitis with organ dysfunction of (enter documented dysfunction)
� Colitis only
� Other
� Clinically unable to determine
Use of terms such as suspected, likely, concern for, or probable (associated with a specific diagnosis that is being evaluated, monitored, or treated as if it exists) are acceptable and can be coded in the inpatient setting when documented at the
time of discharge.
Please use your independent medical judgement in providing your response.
Thank you,
Kati Whitaker RN, BSN
CDI Specialist
Available via [place] text
[2025-08-31] MEDS: LOPRESSOR 25 MG PO ×2 (09:58→20:51)
--- NOTE | 2025-08-31 10:20 | W.PN.CD ---
Translation Services
-
Comment: Not used because of the patient's dementia.
Today's Communication / Plan
-
Continue Amio 400 bid while here and send out on 200 mg one time daily
Continue metoprolol
Watch on tele
No plans for EPS or upgrade to ICD
Impression / Plan
-
74-year-old gentleman with history of coronary disease status post CABG and PCI with stents, sick sinus syndrome with dual-chamber pacemaker presented with syncope and ventricular arrhythmia in the setting of septicemia with recent complex urinary
tract infection and diarrhea.
Wide Complex Tachycardia at 120 bpm
- No VT or WCT on review of telemetry since on 2N
- Not the cause of syncope
- Dr. Justice sees fusion beats and AV dissociation which would make the tracing NSVT. I (Haley: I wonder if this is V pacing at max pacing rate of pacemaker)
- Correcting metabolic, infectious, and volume status is appropriate
- Echo LVEF 50-55% is favorable and the dementia and comorbid conditions are not favorable for ICD
- Pacer now set to store for V rates over 150 bpm
- Dr. Justice favors Metoprolol and amiodarone
Syncope
- Etiology uncertain
- No fast V rates on pacer check
- The WCT at 120 bpm did not cause syncope
- Perhaps related to infection and hyptension from infection, first BP here 87/51. EMS recorded variable BPs but as low as 82/55
Urinary tract infection
Colitis from cecum to sigmoid colon on CT
C Dif Toxin +
Coronary artery disease with prior CABG
Sick sinus syndrome, S/p Biotronik Pacer
Physical Exam
Vital Signs/Labs
Vital Signs
Temp Pulse Resp BP Pulse Ox
98.1 F 68 16 100/73 97
08/31/25 07:47 08/31/25 09:58 08/31/25 07:47 08/31/25 09:58 08/31/25 07:47
08/30/25 08/31/25 09/01/25
06:59 06:59 06:59
Actual Weight 69.031 kg
08/31/25 09:20
Magnesium 1.7 mg/dl (1.6-2.3) 08/30/25 02:35
TSH Cancelled 08/30/25 10:39
LAB Results
08/30/25 08/30/25 08/30/25
03:17 11:27 18:45
Troponin I < 0.012 0.015 Cancelled
Physical Exam
Constitutional: No acute distress
Cardiovascular: Rhythm & rate is regular and Pedal edema is absent
Respiratory: Respiratory effort normal
Neuro/Psych: Alert
Data Reviewed
-
Date of Service: August 31, 2025
[2025-08-31 10:21] LABS: Troponin I 0.018 ng/ml
[2025-08-31 10:22] LABS: Blood Urea Nitrogen 8 mg/dl (9-20); Calcium 8.1 mg/dl (8.4-10.2); Carbon Dioxide 24 mmol/L (22-30); Chloride 106 mmol/L (98-107); Estimated Creatinine Clearance 83 ml/min; Glucose 87 mg/dl (70-99); Magnesium 1.8 mg/dl (1.6-2.3); Potassium 3.5 mmol/L (3.5-5.1); Sodium 131 mmol/L (135-145); eGFR > 60.00
[2025-08-31 13:00] VITALS: BP 69/33
[2025-08-31] MEDS: KCL 40 MEQ PO (13:12)
[2025-08-31] MEDS: MAGNESIUM OXIDE 400 MG PO ×2 (13:12→20:42)
[2025-08-31] MEDS: FLAGYL 500 MG 100 IV ×2 (14:03→22:12)
--- NOTE | 2025-08-31 14:21 | W.PN.HOSP.TC ---
Today's Communication/Plan
-
Continue antibiotics: Oral vancomycin with addition of IV Flagyl.
Monitor for recurrent VT
Replete potassium and magnesium
Continue beta-bekah with caution for hypotension. Initiated on amiodarone.
Plan of care discussed with patient's
Assessment / Plan
Assessment / Plan
Impression
Patient is a 74y M with PMH significant for ASCVD and dementia who presents to ED for evaluation of diarrhea, weakness and fatigue.
Pancolitis
Sepsis secondary to above
Hypotension secondary to above as well as dehydration with GI losses
Syncope
Nonsustained ventricular tachycardia while in the ED
Hyponatremia
Recent hospitalization with urinary tract infection
Conditions prior to admission
CAD, status post CABG, multiple PCI's with stent
Sick sinus syndrome, status post dual-chamber pacemaker
Dementia Alzheimer type
Imaging
CT abdomen and pelvis with IV contrast only
IMPRESSION:
1. Acute colitis extending from cecum to the sigmoid colon. No signs of abscess formation. Infectious and inflammatory etiologies are the most likely differential considerations.
2. Mild intrahepatic biliary dilation, indeterminate etiology.
3. Enlarged, heterogeneous prostate gland as above. Mild urinary bladder wall thickening, question outlet obstruction.
Echocardiogram 08/30
1. Normal biventricular size and global systolic function with an ejection fraction of 50 to 55%. Hypokinesis of the inferoseptal, anteroseptal and apical inferior granda.
2. No significant valve disease.
3. No prior study available for comparison.
Plan
Pancolitis secondary to C. difficile.
Sepsis secondary to above present on admission
Hypotension multifactorial due to above as well as dehydration with GI losses.
Recent hospitalization for urinary tract infection completed course of antibiotics
Presenting with profuse diarrhea and CT scan findings as above.
Overall improved with trending down fever and normalized white count
Benign abdominal examination
Continue oral vancomycin with addition of IV Flagyl
Continue IV fluids monitor for recurrent hypotension
BRAT diet
Recurrent syncope at home.
Suspect secondary to dehydration.
Noted nonsustained VT in the emergency room.
Twelve-lead ECG with atrial paced rhythm. Nonspecific T wave abnormality
Cardiology input noted
Pacemaker interrogated
Negative cardiac markers
Echocardiogram as above
Continue telemetry monitoring.
Replete magnesium and potassium
Continue beta-bekah
Initiated on amiodarone
Hyponatremia. Sodium 128
Suspect hypovolemia secondary to GI losses.
TSH within normal limits
Urine osmolarity consistent with increased ADH state likely secondary to hypotension
Continue isotonic solution follow BMP closely
Recent UTI.
BPH with concern for bladder outlet obstruction on imaging.
Bladder scan for retention.
ASCVD.
Episodes of VT as above.
Continue preadmission regimen including metoprolol, Plavix, atorvastatin, Vascepa.
Dementia Alzheimer type.
Monitor for acute agitation/delirium during hospital stay.
Preadmission regimen including trazodone, memantine, Lexapro, Aricept.
Given nonsustained VT, holding home QT prolonging medications including Aricept and Lexapro
DVT Prophylaxis: SCDs
Code Status: DNI
Anticipated Discharge: > 48 hours
Subjective/Interval History
-
Date of Service: August 31, 2025
Objective Data
-
Labs:
Laboratory Results
08/31/25
09:20
WBC 10.8
Hgb 11.1 L
Hct 32.2 L
Plt Count 190
Sodium 131 L
Potassium 3.5
Chloride 106
Carbon Dioxide 24
BUN 8 L
Creatinine 0.7
Glucose 87
Calcium 8.1 L
Vital Signs:
Vital Signs
Temp Pulse Resp BP Pulse Ox
98.2 F 64 16 100/73 98
08/31/25 12:57 08/31/25 12:57 08/31/25 12:57 08/31/25 09:58 08/31/25 12:57
I&O
08/30/25 08/31/25 09/01/25
06:59 06:59 06:59
Intake Total 350 / 350
Output Total 550 / 550
Balance -200 / -200
Physical Exam
-
General: Well Developed and No Apparent Distress
HEENT: Normocephalic, Atraumatic and Moist Mucous Membranes
Respiratory: Clear to Auscultation
Cardiac: Regular Rhythm and S1/S2; Negative Murmur, Rub or Gallop
GI: Soft, Nontender, Nondistended and Normal Bowel Sounds; Negative Organomegaly
Rectal: Deferred by Provider
Musculoskeletal: No Clubbing, No Cyanosis and No Edema
Skin: Negative Rash
Neuro: Awake, Alert, Oriented (To name only at the baseline) and Nonfocal/Grossly Intact
[2025-08-31 14:59] VITALS: BP 91/33
[2025-08-31 19:04] VITALS: BP 108/39
[2025-08-31] MEDS: DESYREL 50 MG PO (20:43)
[2025-08-31] MEDS: LIPITOR 80 MG PO (20:43)
[2025-08-31 23:01] VITALS: BP 100/40
[2025-09-01] VITALS (8 sets, daily range): BP systolic 101–145; BP diastolic 44–78; PULSE 70–81; O2SAT 95
[2025-09-01] MEDS: NSS 1000 IV (03:33)
[2025-09-01] MEDS: FIRVANQ 125 MG PO ×4 (05:03→23:52)
[2025-09-01] MEDS: FLAGYL 500 MG 100 IV ×3 (05:03→22:43)
[2025-09-01 07:09] LABS: Hematocrit 32.7 % (39.0-52.0); Hemoglobin 11.8 g/dL (13.0-18.0); Mean Corp Hgb Conc. 36.1 g/dL (33.0-37.0); Mean Corpuscular Volume 81.1 fL (80.0-94.0); Platelet Count 183 10^3/uL (130-400); Red Cell Dist. Width 13.0 % (11.5-14.5)
[2025-09-01 07:38] LABS: Blood Urea Nitrogen 4 mg/dl (9-20); Calcium 8.3 mg/dl (8.4-10.2); Carbon Dioxide 21 mmol/L (22-30); Chloride 110 mmol/L (98-107); Estimated Creatinine Clearance 83 ml/min; Glucose 108 mg/dl (70-99); Potassium 3.7 mmol/L (3.5-5.1); Sodium 132 mmol/L (135-145); eGFR > 60.00
[2025-09-01] MEDS: PACERONE 400 MG PO ×2 (09:19→20:18)
[2025-09-01] MEDS: FLOMAX 0.4 MG PO (09:19)
[2025-09-01] MEDS: PLAVIX 75 MG PO (09:19)
[2025-09-01] MEDS: LOPRESSOR 25 MG PO ×2 (09:19→20:17)
[2025-09-01] MEDS: MAGNESIUM OXIDE 400 MG PO ×2 (09:19→20:17)
[2025-09-01] MEDS: ANTIVERT 12.5 MG PO ×3 (09:20→22:43)
[2025-09-01] MEDS: FOLVITE 1 MG PO (09:20)
[2025-09-01] MEDS: NAMENDA 10 MG PO ×2 (09:20→20:18)
--- NOTE | 2025-09-01 09:58 | W.PN.CD ---
Translation Services
-
Comment: Severe dementia - not able to communicate.
Today's Communication / Plan
-
- Continue kathy Zamora
- Plan for amiodarone for 3 months - discharge dose 200 mg QD
- Continue Metoprolol.
- Please call with questions.
Impression / Plan
-
74-year-old gentleman with history of coronary disease status post CABG and PCI with stents, sick sinus syndrome with dual-chamber pacemaker presented with syncope and ventricular arrhythmia in the setting of septicemia with recent complex urinary
tract infection and diarrhea with C diff colitis.
Wide Complex Tachycardia at 120 bpm
- No VT or WCT on review of telemetry since on 2N
- Not the cause of syncope
- Slow VT noted enroute to hospital is not likely to cause syncope.
- Possibility of other ventricular rhythms might be responsible for syncope associated with hypoNA, and electrolyte abnormalitues in setting of sepsis and GI losses.
- Correcting metabolic, infectious, and volume status is appropriate
- Echo LVEF 50% with global hypokinesis of the inferoseptal, anteroseptal and apical inferior granda
- With likely reversible causes and severe dementia and comorbid conditions, he is not a good candidate for ICD
- Pacer now set to store for V rates over 150 bpm.
- Plan to discharge on Metoprolol and amiodarone.
- Amiodarone for 6 months and then off. With monitoring on the pacemaker, will assess the recurrence of VT.
Syncope
- Etiology uncertain- multiple etiologies possible including, ventricular arrhtyhmia, infection, electrolyte abnomalities, and hypotension.
- No fast V rates on pacer check
- The WCT at 120 bpm did not cause syncope
Urinary tract infection
Colitis from cecum to sigmoid colon on CT
C Dif Toxin +
Coronary artery disease with prior CABG
Sick sinus syndrome, S/p Biotronik Pacer
Physical Exam
Vital Signs/Labs
Vital Signs
Temp Pulse Resp BP Pulse Ox
98 F 74 18 108/44 96
09/01/25 07:00 09/01/25 07:00 09/01/25 07:00 09/01/25 07:00 09/01/25 07:00
09/01/25 06:49
09/01/25 06:49
Magnesium 1.8 mg/dl (1.6-2.3) 08/31/25 09:20
TSH Cancelled 08/30/25 10:39
LAB Results
08/30/25 08/30/25 08/30/25
03:17 11:27 18:45
Troponin I < 0.012 0.015 Cancelled
08/31/25
09:20
Troponin I 0.018
Physical Exam
Constitutional: No acute distress, Comfortable and Confusion
EENT: Anicteric and Moist mucous membranes
Cardiovascular: Rhythm & rate is regular, Pedal edema is absent and JVD pressure is normal
Respiratory: Respiratory effort normal, Lungs clear to auscul. and Wheeze Absent
GI: Soft, Non tender and Normal bowel sounds
Neuro/Psych: Alert
Data Reviewed
-
Date of Service: September 01, 2025
Medical Decision Making: Reviewed Test Results, Test Interpretation and Review of Case with other Provider
EKG: Tracing Personally Visualized and interpreted
Echo: Report Reviewed by me
Labs: Labs Reviewed by me
Old Records: Reviewed
[2025-09-01] MEDS: NSS IV (10:06)
--- NOTE | 2025-09-01 10:42 | W.PN.HOSP.TC ---
Today's Communication/Plan
-
Continue antibiotics: Oral vancomycin and IV Flagyl
Abdominal examination remains benign with reasonable oral intake
Follow fever temperature curve and WBC
Wean off IV fluids if normotensive
Continue beta-blockers and amiodarone
Follow electrolytes
Assessment / Plan
Assessment / Plan
Impression
Patient is a 74y M with PMH significant for ASCVD and dementia who presents to ED for evaluation of diarrhea, weakness and fatigue.
Pancolitis
Sepsis with endorgan dysfunction secondary to C. difficile colitis.
Hypotension secondary to above as well as dehydration with GI losses
Syncope
Nonsustained ventricular tachycardia while in the ED
Hyponatremia
Recent hospitalization with urinary tract infection
Conditions prior to admission
CAD, status post CABG, multiple PCI's with stent
Sick sinus syndrome, status post dual-chamber pacemaker
Dementia Alzheimer type
Imaging
CT abdomen and pelvis with IV contrast only
IMPRESSION:
1. Acute colitis extending from cecum to the sigmoid colon. No signs of abscess formation. Infectious and inflammatory etiologies are the most likely differential considerations.
2. Mild intrahepatic biliary dilation, indeterminate etiology.
3. Enlarged, heterogeneous prostate gland as above. Mild urinary bladder wall thickening, question outlet obstruction.
Echocardiogram 08/30
1. Normal biventricular size and global systolic function with an ejection fraction of 50 to 55%. Hypokinesis of the inferoseptal, anteroseptal and apical inferior granda.
2. No significant valve disease.
3. No prior study available for comparison.
Plan
Pancolitis secondary to C. difficile.
Sepsis secondary to above present on admission
Hypotension multifactorial due to above as well as dehydration with GI losses.
Recent hospitalization for urinary tract infection completed course of antibiotics
Presenting with profuse diarrhea and CT scan findings as above.
Overall improved with trending down fever and normalized white count
Benign abdominal examination
Continue oral vancomycin with addition of IV Flagyl
Continue IV fluids monitor for recurrent hypotension
BRAT diet
Recurrent syncope at home.
Suspect secondary to dehydration.
Noted nonsustained VT in the emergency room.
Twelve-lead ECG with atrial paced rhythm. Nonspecific T wave abnormality
Cardiology input noted
Pacemaker interrogated
Negative cardiac markers
Echocardiogram as above
Continue telemetry monitoring.
Replete magnesium and potassium
Continue beta-bekah
Initiated on amiodarone
Hyponatremia. Sodium 128
Suspect hypovolemia secondary to GI losses.
TSH within normal limits
Urine osmolarity consistent with increased ADH state likely secondary to hypotension
Sodium improved with IV hydration 128�132
Recent UTI.
BPH with concern for bladder outlet obstruction on imaging.
Bladder scan for retention.
ASCVD.
Episodes of VT as above.
Continue preadmission regimen including metoprolol, Plavix, atorvastatin, Vascepa.
Dementia Alzheimer type.
Monitor for acute agitation/delirium during hospital stay.
Preadmission regimen including trazodone, memantine, Lexapro, Aricept.
Given nonsustained VT, holding home QT prolonging medications including Aricept and Lexapro
DVT Prophylaxis: SCDs
Code Status: DNI
Anticipated Discharge: 24 - 48 hours
Subjective/Interval History
-
Date of Service: September 01, 2025
Objective Data
-
Labs:
Laboratory Results
09/01/25
06:49
WBC 12.3 H
Hgb 11.8 L
Hct 32.7 L
Plt Count 183
Sodium 132 L
Potassium 3.7
Chloride 110 H
Carbon Dioxide 21 L
BUN 4 L
Creatinine 0.7
Glucose 108 H
Calcium 8.3 L
Vital Signs:
Vital Signs
Temp Pulse Resp BP Pulse Ox
98 F 74 18 108/44 96
09/01/25 07:00 09/01/25 07:00 09/01/25 07:00 09/01/25 07:00 09/01/25 07:00
I&O
08/31/25 09/01/25 09/02/25
06:59 06:59 06:59
Intake Total 350 / 350 1960 / 1960
Output Total 550 / 550 1000 / 1000
Balance -200 / -200 960 / 960
Physical Exam
-
General: Well Developed and No Apparent Distress
HEENT: Normocephalic, Atraumatic and Moist Mucous Membranes
Respiratory: Clear to Auscultation
Cardiac: Regular Rhythm and S1/S2; Negative Murmur, Rub or Gallop
GI: Soft, Nontender, Nondistended and Normal Bowel Sounds; Negative Organomegaly
Rectal: Deferred by Provider
Musculoskeletal: No Clubbing, No Cyanosis and No Edema
Skin: Negative Rash
Neuro: Awake, Alert, Oriented (To name only at the baseline) and Nonfocal/Grossly Intact
--- NOTE | 2025-09-01 10:53 | PN.CDI ---
CDI
- -
CDI:
Physician Documentation Request
Admit Date: 08/30/25 05:46
Dear Doctor,
Sepsis without organ dysfunction is no longer used within our health system. These cases are now coded as the primary infection, not as sepsis.
[facility] is using an adapted version of the 2016 Third International Consensus Definitions for Sepsis and Septic Shock (Sepsis-3) where sepsis is defined as life threatening organ dysfunction caused by a deregulated host response to infection.
Please reference the official [facility] Sepsis Recognition Tool for further information, which is available on the Intranet under Infection Prevention.
Clinical Indicators Include:
08/31 Hospitalist PN:'Pancolitis, Sepsis with endorgan dysfunction secondary to C. difficile colitis.'
BP: 87/51
WBC: 15.0
Based on your medical judgment, please review the documentation pertaining to Sepsis due to (Enter infection) and further clarify the clinical indicators and any organ dysfunction associated with the diagnosis, if applicable:
� Sepsis ruled out, C. difficile colitis only
� Sepsis due to C. difficile colitis with organ dysfunction of
� Other
� Clinically Unable to Determine
Use of terms such as suspected, likely, concern for, or probable (associated with a specific diagnosis that is being evaluated, monitored, or treated as if it exists) are acceptable and can be coded in the inpatient setting when documented at the
time of discharge.
Please use your independent medical judgement in providing your response.
Thank you,
Kati Whitaker RN, BSN
CDI Specialist
Available via [place] text
--- NOTE | 2025-09-01 12:15 | ITS.CL.ABL ---
Addendum entered and electronically signed by Carla Justice MD 09/02/25 12:36:
Dictated in error
Please delete this document. This is not a report for this patient.
Original Note:
Machine Sewer - Ablation
Ablation
Procedure Report:
AFIB ablation:
Ms. Ludwig is a very pleasant 74 yr old gentleman with symptomatic persistent AF and atrial flutters, is recommended for atrial fibrillation ablation.
Date of the Procedure:
09/01/2025
Indications:
Persistent atrial fibrillation / atrial flutter
Pre-Operative Diagnosis:
Persistent atrial fibrillation / atrial flutter
Post-Operative Diagnosis:
Persistent atrial fibrillation / atrial flutter
Procedure Performed:
Atrial fibrillation ablation with Pulsed-Field approach for pulmonary vein isolation
Roof dependent atrial flutter ablation
Posterior wall isolation
Performing Physician:
Carla Justice MD
Assistants:
EP staff
Anesthesia:
See anesthesia records
Detailed Description of the Procedure:
Written informed consent was obtained from the patient after a full explanation of the risks and benefits of the procedure including the risks of sedation and anesthesia.
The patient was brought to the electrophysiology laboratory in stable condition in fasting state. Continuous electrocardiographic and hemodynamic monitoring was initiated.
The initial rhythm was atrial fibrillation.
The procedure site was meticulously prepared with surgical scrub and allowed to dry with no pooling. Sterile draping was applied to cover the procedure site. The image intensifier was draped with sterile bag and positioned over the patient. After
infusion of local anesthetic, vascular access was obtained under ultrasound guidance and sheaths were placed over guide wire as detailed below.
Sheath and Catheter Placement:
The following catheters / sheaths were placed
Sheaths:
17Fr steerable sheath (Faradrive�, Friend Traveler) in right femoral
9Fr in right femoral vein
7Fr in right femoral vein
Catheters:
GERRI HD Grid mapping catheter � at locations of RA, LA
Farawave� PFA catheter
ICE catheter -AcuNav - at locations of RA, SVC, and RV.
Decapolar Bard catheter in RA and CS
Intracardiac ECHO:
An 8-Nauruan AcuNav intracardiac ECHO (ICE) probe was advanced through the 9-Nauruan sheath in the right femoral vein into the right atrium under fluoroscopic and ICE ultrasound image guidance and a baseline ECHO study was performed. The left atrial
size was dilated. There was moderate tricuspid regurgitation. The aortic valve was grossly normal. There was normal left ventricular systolic functions. There is trace pericardial effusion. All the four veins were identified and has flow identified.
There was good flow noted in the NICKY.
During the procedure, ICE was used for monitoring of complications, guidance of trans-septal puncture, monitor the catheter position and tracking ablation lesions. No change in the pericardial space noted throughout the procedure.
Trans-septal Puncture:
Heparin was initiated and infused to maintain appropriate ACT. A pigtail guidewire was advanced through the 8-Nauruan sheath in the right femoral vein into the superior vena cava under fluoroscopic and ICE guidance. The 9-Nauruan sheath was exchanged
for a Faradrive sheath which was advanced into the superior vena cava. A transseptal VersaCross RF pigtail via Faradrive connect system was utilized to perform the trans-septal puncture. The apparatus was withdrawn until it was in contact with the
fossa ovalis. The position was adjusted based on fluoroscopy and ultrasound images from ICE. Under fluoroscopic, hemodynamic and ICE ultrasound guidance, left atrium was cannulated by applying RF energy. Once atrial septum was cannulated, the
pigtail wire was advanced into the left atrium. The guide wire was advanced into the left superior pulmonary vein. Both the sheath and the dilator was advanced into the left atrium. The dilator with the needle was withdrawn. Blood was aspirated from
the Faradrive sheath and arterial blood confirmed. The sheath was flushed. Saline injection noted into the left atrium on ICE. The mapping catheter was advanced in the sheath into the left pulmonary vein. Left atrial pressure was measured.
3D Electroanatomic Mapping:
Using the HD Grid catheter advanced through sheath into the left atrium, an electroanatomic map (EAM) of the left atrium was created using Dinam[employer] GERRI mapping system. The map was used for localization of catheter position and tacking of ablation
lesions.
The EAM of the left atrium showed 4 pulmonary veins (Left common and 3 right sided) with all 4 veins electrically connected to the body the LA. It showed only scattered areas of low voltage on the posterior and anterior wall of the LA in AF but had
good signals in sinus rhythm. The LA was dilated in size.
Following the EAM, preparation were made for ablation.
Ablation:
Ablation # 1: Pulmonary vein Isolation:
Glycopyrrolate 0.2 mg was given prior to the placement of ablation. Using TraceWorksawave pulsed field ablation system, pulmonary vein isolation was achieved. First the ablation catheter was placed in the LSPV and ostial ablation lesions were performed in
an �[place]� formation of the Farawave configuration and a counter clock henry rotation was done and ablated to cover the area between the electrodes. Then the catheter was placed on the antral location in �[place]� configuration and multiple ablation
lesions were placed circumferentially on the antrum of the vein.
In the similar fashion, the LIPV were isolated.
Then the catheter was moved to right sided veins. The ostial and antral ablations were placed as noted above.
Patient remained in atrial fibrillation.
Ablation #2: Roof dependent flutter ablation
Patient had hx of atrial flutter and the rhythm was switching from AF to FL to AF during the case. The flutter was coming from the LA. The entrainment could not be done due to degeneration into atrial fibrillation.
This was consistent with roof dependent atrial flutter asim with extensive scar on the posterior wall and channels conduction on the posterior wall.
Using the pulsed field ablation catheter, the catheter was placed between left superior pulmonary vein and right severe pulmonary vein with series of overlapping ablation lesions placed.
Ablation # 3: Posterior wall isolation:
Using the pulsed field ablation catheter, the catheter was placed on the posterior wall and moved around the posterior wall to have adequate contact and ablations were placed isolating the posterior wall.
Cardioversion:
Once the PV isolation was achieved, decision was made to proceed with cardioversion. A 200 J biphasic shock was applied on the chaya posterior Zoll patches and sinus rhythm was achieved. No significant pause noted.
EPS and Confirmation of the PVI and bidirectional block:
Following achievement of entrance block at the pulmonary veins, pacing from the HD catheter in each of the four veins at 10 milliamps for 2 milliseconds showed entrance and exit block. All PVI were rechecked at the end of the case and remained
isolated. Entrance and exit block were demonstrated in all veins.
Post ablation Electroanatomic mapping:
Once ablation was completed, the EAM of the LA was done again in sinus rhythm with excellent demarcation of LA myocardium and isolated antral tissue. There was only little scattered scar noted on the anterior wall with large anteroseptal patch of
scar.
The NICKY had healthy signals and was not isolated.
Procedure End
ICE study was done again that showed no epicardial accumulation. No complications noted.
Following the completion of the EP study, catheters were removed. Protamine 40 mg was given at the end of the procedure and ACT was checked repeatedly. The sheaths were removed and hemostasis achieved with �Figure of 8� and manual compression after
acceptable ACT is achieved.
Total Number PFA ablation lesions
45
Left atrial Pressure:
pre-ablation: Mean LA pressure was 4mmHg
post-ablation: Mean LA pressure was 6mmHg
post-ablation: Mean RA pressure was 2 mmHg.
Estimated Blood loss:
<10 cc
Specimens Removed:
None.
Implants / Devices:
None
Urine output:
None
Packs / Drains/ Tubes:
None
Instrument / Sponge Count Correct:
Yes
Complications of the Procedure:
None
Condition of Patient at Time of Transfer:
Hemodynamically stable with no neurological or vascular compromise.
Summary:
Successful atrial fibrillation ablation with Pulsed Field approach for pulmonary vein isolation, roof dependent flutter ablation and posterior wall isolation. .
Figures from the Procedure:
Figure 1: The electroanatomic mapping (EAM) of the left atrium with bipolar voltage (purple indicates normal electrical activity with roberto as no myocardial muscle electric activity indicating a line of block or scar.
[2025-09-01] MEDS: ROBITUSSIN DM 5 ML PO (17:39)
[2025-09-01] MEDS: LIPITOR 80 MG PO (20:18)
[2025-09-01] MEDS: DESYREL 50 MG PO (20:18)
[2025-09-02] VITALS (7 sets, daily range): BP systolic 100–133; BP diastolic 49–91; PULSE 66–73; O2SAT 92
[2025-09-02] MEDS: FIRVANQ 125 MG PO ×4 (05:36→23:30)
[2025-09-02] MEDS: FLAGYL 500 MG 100 IV ×3 (05:36→22:21)
[2025-09-02] MEDS: FLOMAX 0.4 MG PO (08:40)
[2025-09-02] MEDS: PACERONE 400 MG PO ×2 (08:41→20:05)
[2025-09-02] MEDS: MAGNESIUM OXIDE 400 MG PO ×2 (08:41→20:04)
[2025-09-02] MEDS: PLAVIX 75 MG PO (08:41)
[2025-09-02] MEDS: FOLVITE 1 MG PO (08:41)
[2025-09-02] MEDS: NAMENDA 10 MG PO ×2 (08:41→20:04)
[2025-09-02] MEDS: ANTIVERT 12.5 MG PO ×3 (08:41→22:20)
[2025-09-02] MEDS: LOPRESSOR 25 MG PO ×2 (08:42→20:04)
[2025-09-02 10:39] LABS: Hematocrit 34.4 % (39.0-52.0); Hemoglobin 11.7 g/dL (13.0-18.0); Mean Corp Hgb Conc. 34.0 g/dL (33.0-37.0); Mean Corpuscular Volume 85.4 fL (80.0-94.0); Nucleated Red Blood Cells % 0 % (-); Platelet Count 223 10^3/uL (130-400); Red Cell Dist. Width 13.0 % (11.5-14.5)
[2025-09-02 10:53] LABS: Blood Urea Nitrogen 3 mg/dl (9-20); Calcium 8.9 mg/dl (8.4-10.2); Carbon Dioxide 28 mmol/L (22-30); Chloride 109 mmol/L (98-107); Estimated Creatinine Clearance 83 ml/min; Glucose 126 mg/dl (70-99); Potassium 4.6 mmol/L (3.5-5.1); Sodium 139 mmol/L (135-145); eGFR > 60.00
--- NOTE | 2025-09-02 14:57 | W.PN.HOSP.TC ---
Today's Communication/Plan
-
Overall improving with improved hypotension.
Observe off IV fluids
Continue antibiotics for C. difficile.
Continue telemetry monitoring for recurrent VT
Physical therapy
Patient's updated over the phone
Monitor closely for the next 48 hours with plan for home discharge on Friday.
Assessment / Plan
Assessment / Plan
Impression
Patient is a 74y M with PMH significant for ASCVD and dementia who presents to ED for evaluation of diarrhea, weakness and fatigue.
Pancolitis
Sepsis with endorgan dysfunction secondary to C. difficile colitis.
Hypotension secondary to above as well as dehydration with GI losses
Syncope
Nonsustained ventricular tachycardia while in the ED
Hyponatremia
Recent hospitalization with urinary tract infection
Conditions prior to admission
CAD, status post CABG, multiple PCI's with stent
Sick sinus syndrome, status post dual-chamber pacemaker
Dementia Alzheimer type
Imaging
CT abdomen and pelvis with IV contrast only
IMPRESSION:
1. Acute colitis extending from cecum to the sigmoid colon. No signs of abscess formation. Infectious and inflammatory etiologies are the most likely differential considerations.
2. Mild intrahepatic biliary dilation, indeterminate etiology.
3. Enlarged, heterogeneous prostate gland as above. Mild urinary bladder wall thickening, question outlet obstruction.
Echocardiogram 08/30
1. Normal biventricular size and global systolic function with an ejection fraction of 50 to 55%. Hypokinesis of the inferoseptal, anteroseptal and apical inferior granda.
2. No significant valve disease.
3. No prior study available for comparison.
Plan
Pancolitis secondary to C. difficile.
Sepsis secondary to above present on admission
Hypotension multifactorial due to above as well as dehydration with GI losses.
Recent hospitalization for urinary tract infection completed course of antibiotics
Presenting with profuse diarrhea and CT scan findings as above.
Overall improved with trending down fever and normalized white count
Benign abdominal examination
Continue oral vancomycin with addition of IV Flagyl
Stop IV fluids and observe BP
BRAT diet
Recurrent syncope at home.
Suspect secondary to dehydration.
Noted nonsustained VT in the emergency room.
Twelve-lead ECG with atrial paced rhythm. Nonspecific T wave abnormality
Cardiology input noted
Pacemaker interrogated with slow VT
Negative cardiac markers
Echocardiogram as above
Continue telemetry monitoring.
Replete magnesium and potassium
Continue beta-bekah
Initiated on amiodarone with plan for 3 months treatment
Hyponatremia. Sodium 128
Suspect hypovolemia secondary to GI losses.
TSH within normal limits
Urine osmolarity consistent with increased ADH state likely secondary to hypotension
Sodium improved with IV hydration 128�139.
Recent UTI.
BPH with concern for bladder outlet obstruction on imaging.
Bladder scan for retention.
ASCVD.
Episodes of VT as above.
Continue preadmission regimen including metoprolol, Plavix, atorvastatin, Vascepa. Initiated on amiodarone for 3 months
Dementia Alzheimer type.
Monitor for acute agitation/delirium during hospital stay.
Preadmission regimen including trazodone, memantine, Lexapro, Aricept.
Given nonsustained VT, holding home QT prolonging medications including Aricept and Lexapro
DVT Prophylaxis: SCDs
Code Status: DNI
Anticipated Discharge: > 48 hours
Subjective/Interval History
-
Date of Service: September 02, 2025
Objective Data
-
Labs:
Laboratory Results
09/02/25
10:16
WBC 9.7
Hgb 11.7 L
Hct 34.4 L
Plt Count 223 D
Sodium 139
Potassium 4.6
Chloride 109 H
Carbon Dioxide 28
BUN 3 L
Creatinine 0.7
Glucose 126 H
Calcium 8.9
Vital Signs:
Vital Signs
Temp Pulse Resp BP Pulse Ox
97.4 F 69 16 133/66 97
09/02/25 11:00 09/02/25 11:00 09/02/25 11:00 09/02/25 11:00 09/02/25 13:26
I&O
09/01/25 09/02/25 09/03/25
06:59 06:59 06:59
Intake Total 1960 / 1960 840 / 840
Output Total 1000 / 1000
Balance 960 / 960 840 / 840
Physical Exam
-
General: Well Developed and No Apparent Distress
HEENT: Normocephalic, Atraumatic and Moist Mucous Membranes
Respiratory: Clear to Auscultation
Cardiac: Regular Rhythm and S1/S2; Negative Murmur, Rub or Gallop
GI: Soft, Nontender, Nondistended and Normal Bowel Sounds; Negative Organomegaly
Rectal: Deferred by Provider
Musculoskeletal: No Clubbing, No Cyanosis and No Edema
Skin: Negative Rash
Neuro: Awake, Alert, Oriented (To name only at the baseline) and Nonfocal/Grossly Intact
[2025-09-02] MEDS: LIPITOR 80 MG PO (22:20)
[2025-09-02] MEDS: DESYREL 50 MG PO (22:20)
[2025-09-02] MEDS: FLUSH (NSS) 2 FLUSH IV (22:22)
[2025-09-03] VITALS (8 sets, daily range): BP systolic 101–140; BP diastolic 50–75; PULSE 67–82; BMI 26.0
[2025-09-03] MEDS: FIRVANQ 125 MG PO ×4 (05:02→23:01)
[2025-09-03] MEDS: FLAGYL 500 MG 100 IV ×3 (05:02→21:52)
[2025-09-03] MEDS: FLUSH (NSS) 2 FLUSH IV ×2 (05:03→21:52)
[2025-09-03] MEDS: LOPRESSOR 25 MG PO ×2 (08:27→20:15)
[2025-09-03] MEDS: NAMENDA 10 MG PO ×2 (08:27→20:15)
[2025-09-03] MEDS: MAGNESIUM OXIDE 400 MG PO ×2 (08:28→20:15)
[2025-09-03] MEDS: ANTIVERT 12.5 MG PO ×3 (08:28→21:51)
[2025-09-03] MEDS: FOLVITE 1 MG PO (08:28)
[2025-09-03] MEDS: PLAVIX 75 MG PO (08:28)
[2025-09-03] MEDS: FLOMAX 0.4 MG PO (08:28)
[2025-09-03] MEDS: PACERONE 400 MG PO ×2 (08:28→20:15)
[2025-09-03 09:18] LABS: Hematocrit 34.9 % (39.0-52.0); Hemoglobin 12.1 g/dL (13.0-18.0); Mean Corp Hgb Conc. 34.7 g/dL (33.0-37.0); Mean Corpuscular Volume 84.9 fL (80.0-94.0); Nucleated Red Blood Cells % 0 % (-); Platelet Count 250 10^3/uL (130-400); Red Cell Dist. Width 12.9 % (11.5-14.5)
[2025-09-03 09:41] LABS: Magnesium 1.9 mg/dl (1.6-2.3)
[2025-09-03 09:53] LABS: Blood Urea Nitrogen 2 mg/dl (9-20); Calcium 8.4 mg/dl (8.4-10.2); Carbon Dioxide 28 mmol/L (22-30); Chloride 105 mmol/L (98-107); Estimated Creatinine Clearance 73 ml/min; Glucose 94 mg/dl (70-99); Potassium 3.2 mmol/L (3.5-5.1); Sodium 135 mmol/L (135-145); eGFR > 60.00
--- NOTE | 2025-09-03 11:22 | W.PN.HOSP.TC ---
Today's Communication/Plan
-
Po vanc/flagyl
replete kcl
start lovenox
monitor on tele
Assessment / Plan
Assessment / Plan
Impression
Patient is a 74y M with PMH significant for ASCVD and dementia who presents to ED for evaluation of diarrhea, weakness and fatigue.
Pancolitis
Sepsis with end organ dysfunction secondary to C. difficile colitis.
Hypotension secondary to above as well as dehydration with GI losses
Syncope
Nonsustained ventricular tachycardia while in the ED
Hyponatremia
Hypokalemia
Recent hospitalization with urinary tract infection
Conditions prior to admission
CAD, status post CABG, multiple PCI's with stent
Sick sinus syndrome, status post dual-chamber pacemaker
Dementia Alzheimer type
Imaging
CT abdomen and pelvis with IV contrast only
IMPRESSION:
1. Acute colitis extending from cecum to the sigmoid colon. No signs of abscess formation. Infectious and inflammatory etiologies are the most likely differential considerations.
2. Mild intrahepatic biliary dilation, indeterminate etiology.
3. Enlarged, heterogeneous prostate gland as above. Mild urinary bladder wall thickening, question outlet obstruction.
Echocardiogram 08/30
1. Normal biventricular size and global systolic function with an ejection fraction of 50 to 55%. Hypokinesis of the inferoseptal, anteroseptal and apical inferior granda.
2. No significant valve disease.
3. No prior study available for comparison.
Plan
Pancolitis secondary to C. difficile.
Sepsis secondary to above present on admission
Hypotension multifactorial due to above as well as dehydration with GI losses.
Recent hospitalization for urinary tract infection completed course of antibiotics
Presenting with profuse diarrhea and CT scan findings as above.
Overall improved with trending down fever and normalized white count
Benign abdominal examination
Continue oral vancomycin with addition of IV Flagyl
Stop IV fluids and observe BP
BRAT diet
Recurrent syncope at home.
Suspect secondary to dehydration.
Noted nonsustained VT in the emergency room.
Twelve-lead ECG with atrial paced rhythm. Nonspecific T wave abnormality
Cardiology input noted
Pacemaker interrogated with slow VT
Negative cardiac markers
Echocardiogram as above
Continue telemetry monitoring.
Replete magnesium and potassium
Continue beta-bekah
Initiated on amiodarone with plan for 3 months treatment
Hyponatremia. Sodium 135
Suspect hypovolemia secondary to GI losses.
TSH within normal limits
Urine osmolarity consistent with increased ADH state likely secondary to hypotension
Sodium improved with IV hydration 128�139.
Recent UTI.
BPH with concern for bladder outlet obstruction on imaging.
Bladder scan for retention.
ASCVD.
Episodes of VT as above.
Continue preadmission regimen including metoprolol, Plavix, atorvastatin, Vascepa. Initiated on amiodarone for 3 months
Dementia Alzheimer type.
Monitor for acute agitation/delirium during hospital stay.
Preadmission regimen including trazodone, memantine, Lexapro, Aricept.
Given nonsustained VT, holding home QT prolonging medications including Aricept and Lexapro
DVT Prophylaxis: started lovenox
Code Status: DNI
Anticipated Discharge: > 48 hours
Subjective/Interval History
-
Date of Service: September 03, 2025
eating breakfast but not much appetite overall
Objective Data
-
Labs:
Laboratory Results
09/03/25
08:37
WBC 9.3
Hgb 12.1 L
Hct 34.9 L
Plt Count 250
Sodium 135
Potassium 3.2 L D
Chloride 105
Carbon Dioxide 28
BUN 2 L
Creatinine 0.8
Glucose 94
Calcium 8.4
Vital Signs:
Vital Signs
Temp Pulse Resp BP Pulse Ox
97.7 F 73 18 129/64 94
09/03/25 08:15 09/03/25 08:27 09/03/25 08:24 09/03/25 08:27 09/03/25 08:15
I&O
09/02/25 09/03/25 09/04/25
06:59 06:59 06:59
Intake Total 840 / 840 784 / 784
Balance 840 / 840 784 / 784
Physical Exam
-
General: Well Developed and No Apparent Distress
HEENT: Normocephalic, Atraumatic and Moist Mucous Membranes
Respiratory: Clear to Auscultation
Cardiac: Regular Rhythm and S1/S2; Negative Murmur, Rub or Gallop
GI: Soft, Nontender, Nondistended and Normal Bowel Sounds; Negative Organomegaly
Rectal: Deferred by Provider
Musculoskeletal: No Clubbing, No Cyanosis and No Edema
Skin: Negative Rash
Neuro: Awake, Alert, Oriented (To name only at the baseline) and Nonfocal/Grossly Intact
Data Reviewed
-
Total Time Spent with Patient (in minutes): 55
[2025-09-03] MEDS: KCL ELIXIR 40 MEQ PO (11:50)
[2025-09-03] MEDS: ROBITUSSIN DM 5 ML PO (17:01)
[2025-09-03] MEDS: LOVENOX 40 MG SC (17:01)
[2025-09-03] MEDS: DESYREL 50 MG PO (21:48)
[2025-09-03] MEDS: LIPITOR 80 MG PO (21:48)
[2025-09-04] VITALS (7 sets, daily range): BP systolic 91–145; BP diastolic 52–73; PULSE 64–77; BMI 26.1
[2025-09-04] MEDS: FIRVANQ 125 MG PO ×4 (05:41→23:00)
[2025-09-04] MEDS: FLAGYL 500 MG 100 IV ×3 (05:41→21:18)
[2025-09-04] MEDS: FLUSH (NSS) 2 FLUSH IV (05:42)
[2025-09-04] MEDS: NAMENDA 10 MG PO ×2 (09:24→21:18)
[2025-09-04] MEDS: MAGNESIUM OXIDE 400 MG PO (09:24)
[2025-09-04] MEDS: PACERONE 400 MG PO ×2 (09:28→21:17)
[2025-09-04] MEDS: LOPRESSOR 25 MG PO ×2 (09:29→21:18)
[2025-09-04] MEDS: PLAVIX 75 MG PO (09:29)
[2025-09-04] MEDS: FLOMAX 0.4 MG PO (09:30)
[2025-09-04] MEDS: ANTIVERT 12.5 MG PO ×3 (09:30→21:18)
[2025-09-04] MEDS: FOLVITE 1 MG PO (09:31)
--- NOTE | 2025-09-04 11:36 | W.PN.HOSP.TC ---
Today's Communication/Plan
-
hold po mag oxide
encourage increase po intake
Cont po vanc/flagyl
start dispo process
Assessment / Plan
Assessment / Plan
Impression
Patient is a 74y M with PMH significant for ASCVD and dementia who presents to ED for evaluation of diarrhea, weakness and fatigue.
Pancolitis
Sepsis with end organ dysfunction secondary to C. difficile colitis.
Hypotension secondary to above as well as dehydration with GI losses
Syncope
Nonsustained ventricular tachycardia while in the ED
Hyponatremia
Hypokalemia
Recent hospitalization with urinary tract infection
Conditions prior to admission
CAD, status post CABG, multiple PCI's with stent
Sick sinus syndrome, status post dual-chamber pacemaker
Dementia Alzheimer type
Imaging
CT abdomen and pelvis with IV contrast only
IMPRESSION:
1. Acute colitis extending from cecum to the sigmoid colon. No signs of abscess formation. Infectious and inflammatory etiologies are the most likely differential considerations.
2. Mild intrahepatic biliary dilation, indeterminate etiology.
3. Enlarged, heterogeneous prostate gland as above. Mild urinary bladder wall thickening, question outlet obstruction.
Echocardiogram 08/30
1. Normal biventricular size and global systolic function with an ejection fraction of 50 to 55%. Hypokinesis of the inferoseptal, anteroseptal and apical inferior granda.
2. No significant valve disease.
3. No prior study available for comparison.
Plan
Pancolitis secondary to C. difficile.
Sepsis secondary to above present on admission
Hypotension multifactorial due to above as well as dehydration with GI losses.
Recent hospitalization for urinary tract infection completed course of antibiotics
Presenting with profuse diarrhea and CT scan findings as above.
Overall improved with trending down fever and normalized white count
Benign abdominal examination
Continue oral vancomycin with addition of IV Flagyl
Stop IV fluids and observe BP
BRAT diet
Recurrent syncope at home.
Suspect secondary to dehydration.
Noted nonsustained VT in the emergency room.
Twelve-lead ECG with atrial paced rhythm. Nonspecific T wave abnormality
Cardiology input noted
Pacemaker interrogated with slow VT
Negative cardiac markers
Echocardiogram as above
Continue telemetry monitoring.
Replete magnesium and potassium
Continue beta-bekah
Initiated on amiodarone with plan for 3 months treatment
Hold mag ox -may be contributing to diarrhea
can do mag glycinate as outpatient
Hyponatremia. Sodium 135
Suspect hypovolemia secondary to GI losses.
TSH within normal limits
Urine osmolarity consistent with increased ADH state likely secondary to hypotension
Sodium improved with IV hydration 128�139.
Recent UTI.
BPH with concern for bladder outlet obstruction on imaging.
Bladder scan for retention.
ASCVD.
Episodes of VT as above.
Continue preadmission regimen including metoprolol, Plavix, atorvastatin, Vascepa. Initiated on amiodarone for 3 months
Dementia Alzheimer type.
Monitor for acute agitation/delirium during hospital stay.
Preadmission regimen including trazodone, memantine, Lexapro, Aricept.
Hypokalemia
K stabilized.
Given nonsustained VT, holding home QT prolonging medications including Aricept and Lexapro
DVT Prophylaxis: started lovenox
Code Status: DNI
Anticipated Discharge: 24 - 48 hours
Subjective/Interval History
-
Date of Service: September 04, 2025
having multiple loose bm
remains with poor appetite
Objective Data
-
Labs:
Laboratory Results
09/04/25
11:12
Sodium Pending
Potassium Pending
Chloride Pending
Carbon Dioxide Pending
BUN Pending
Creatinine Pending
Glucose Pending
Calcium Pending
Vital Signs:
Vital Signs
Temp Pulse Resp BP Pulse Ox
97.9 F 70 14 145/68 99
09/04/25 07:10 09/04/25 09:29 09/04/25 07:10 09/04/25 09:29 09/04/25 07:10
I&O
09/03/25 09/04/25 09/05/25
06:59 06:59 06:59
Intake Total 784 / 784 800 / 800
Balance 784 / 784 800 / 800
Physical Exam
-
General: Well Developed and No Apparent Distress
HEENT: Normocephalic, Atraumatic and Moist Mucous Membranes
Respiratory: Clear to Auscultation
Cardiac: Regular Rhythm and S1/S2; Negative Murmur, Rub or Gallop
GI: Soft, Nontender, Nondistended and Normal Bowel Sounds; Negative Organomegaly
Rectal: Deferred by Provider
Musculoskeletal: No Clubbing, No Cyanosis and No Edema
Skin: Negative Rash
Neuro: Awake and Nonfocal/Grossly Intact
Psych: Apparent Dementia
[2025-09-04 11:37] LABS: Blood Urea Nitrogen 3 mg/dl (9-20); Calcium 8.5 mg/dl (8.4-10.2); Carbon Dioxide 27 mmol/L (22-30); Chloride 106 mmol/L (98-107); Estimated Creatinine Clearance 83 ml/min; Glucose 106 mg/dl (70-99); Potassium 3.8 mmol/L (3.5-5.1); Sodium 135 mmol/L (135-145); eGFR > 60.00
[2025-09-04 12:37] LABS: Magnesium 1.9 mg/dl (1.6-2.3)
[2025-09-04] MEDS: LOVENOX 40 MG SC (17:21)
[2025-09-04] MEDS: LIPITOR 80 MG PO (21:17)
[2025-09-04] MEDS: DESYREL 50 MG PO (21:18)
[2025-09-05] VITALS (7 sets, daily range): BP systolic 88–141; BP diastolic 49–66; PULSE 68–71; BMI 23.4
[2025-09-05] MEDS: FIRVANQ 125 MG PO ×4 (05:04→23:04)
[2025-09-05] MEDS: FLAGYL 500 MG 100 IV (05:04)
[2025-09-05] MEDS: LOPRESSOR 25 MG PO ×2 (09:14→20:50)
[2025-09-05] MEDS: FLOMAX 0.4 MG PO (09:14)
[2025-09-05] MEDS: PACERONE 400 MG PO ×2 (09:15→20:55)
[2025-09-05] MEDS: ANTIVERT 12.5 MG PO ×3 (09:15→21:05)
[2025-09-05] MEDS: NAMENDA 10 MG PO ×2 (09:15→20:50)
[2025-09-05] MEDS: PLAVIX 75 MG PO (09:15)
[2025-09-05] MEDS: FOLVITE 1 MG PO (09:16)
--- NOTE | 2025-09-05 12:04 | W.DS.TRANS ---
DC Summary - [facility]
-
Discharge Instructions:
Discharge Diagnosis/Procedures Impression
Patient is a 74y M with PMH significant for
ASCVD and dementia who presents to ED for
evaluation of diarrhea, weakness and fatigue.
Pancolitis
Sepsis with end organ dysfunction secondary to C
. difficile colitis.
Hypotension secondary to above as well as
dehydration with GI losses
Syncope
Nonsustained ventricular tachycardia while in
the ED
Hyponatremia
Hypokalemia
Recent hospitalization with urinary tract
infection
Conditions prior to admission
CAD, status post CABG, multiple PCI's with stent
Sick sinus syndrome, status post dual-chamber
pacemaker
Dementia Alzheimer type
Diet Regular
Instructions:
Stand-Alone Forms:
Changes to Home Medications: Yes
Discharge Medications:
DC Medications w/original date entered in [facility]
atorvastatin 80 mg tablet 80 mg PO HS High Cholesterol 07/19/25
clopidogrel 75 mg tablet 75 mg PO DAILY Blood Clot Prevention/Tx 07/19/25
donepezil 10 mg tablet 10 mg PO HS Mental Health/Anxiety 07/19/25
escitalopram oxalate 10 mg tablet 15 mg PO DAILY Mental Health/Anxiety 07/19/25
folic acid 1 mg tablet 1 mg PO DAILY Supplement 07/19/25
icosapent ethyl 1 gram capsule (Vascepa) 2 g PO BID High Cholesterol 07/19/25
meclizine 12.5 mg tablet 12.5 mg PO TID DIZZINESS 07/19/25
memantine 21 mg capsule sprinkle,extended release 24hr 21 mg PO HS Mental Health/Anxiety 07/19/25
metoprolol tartrate 25 mg tablet 25 mg PO BID Blood Pressure 07/19/25
trazodone 50 mg tablet 50 mg PO HS Mental Health/Anxiety 07/19/25
cyanocobalamin (vitamin B-12) 1,000 mcg/mL injection solution 1,000 mcg SC QWEEK Supplement 08/30/25
amiodarone 200 mg tablet 200 mg PO DAILY #90 tabs 09/05/25
vancomycin 50 mg/mL oral solution 125 mg (2.5 mL) PO Q6 #150 mL 09/05/25
Home Medication Changes
Complete 14-day course of oral vancomycin for C. difficile
Amiodarone 200 mg daily for 3 months
Pending Results: No
--- NOTE | 2025-09-05 12:39 | CM ---
CM reviewed chart and noted dc order
call with spouse to review dc planning, plan for home with HERIBERTO [facility]
Call with [facility]- referral, order, and dc paperwork faxed to [phone]
IMM verbally reviewed with spouse over phone, copy left bedside
She will plan to transport home around 1600 today
VN order on chart
Discharge Disposition- home with Randy [facility]N HERIBERTO, spouse transport
Fax- [phone]
[2025-09-05 14:45] LABS: Hematocrit 33.8 % (39.0-52.0); Hemoglobin 11.6 g/dL (13.0-18.0); Mean Corp Hgb Conc. 34.3 g/dL (33.0-37.0); Mean Corpuscular Volume 84.7 fL (80.0-94.0); Nucleated Red Blood Cells % 0 % (-); Platelet Count 245 10^3/uL (130-400); Red Cell Dist. Width 13.1 % (11.5-14.5)
[2025-09-05 15:25] LABS: Blood Urea Nitrogen 5 mg/dl (9-20); Calcium 9.1 mg/dl (8.4-10.2); Carbon Dioxide 30 mmol/L (22-30); Chloride 107 mmol/L (98-107); Estimated Creatinine Clearance 73 ml/min; Glucose 96 mg/dl (70-99); Potassium 4.5 mmol/L (3.5-5.1); Sodium 139 mmol/L (135-145); eGFR > 60.00
[2025-09-05] MEDS: LOVENOX 40 MG SC (18:34)
[2025-09-05] MEDS: LIPITOR 80 MG PO (21:05)
[2025-09-05] MEDS: DESYREL 50 MG PO (21:05)
[2025-09-06 04:47] VITALS: BMI 24.7
[2025-09-06] MEDS: FIRVANQ PO (06:00)
[2025-09-06 07:36] VITALS: BP 138/53
[2025-09-06] MEDS: PACERONE 400 MG PO (09:49)
[2025-09-06] MEDS: NAMENDA 10 MG PO (09:50)
[2025-09-06] MEDS: ANTIVERT 12.5 MG PO ×2 (09:50→17:08)
[2025-09-06] MEDS: PLAVIX 75 MG PO (09:50)
[2025-09-06] MEDS: FLOMAX 0.4 MG PO (09:50)
[2025-09-06] MEDS: LOPRESSOR 25 MG PO (09:50)
[2025-09-06] MEDS: FOLVITE 1 MG PO (09:51)
[2025-09-06] MEDS: FIRVANQ 125 MG PO ×2 (12:32→17:08)
--- NOTE | 2025-09-06 14:09 | CM ---
CM reviewed chart- pt remains medically ready for dc
Call with pt's pharmacy- dc cancelled last night as discharge medication/ liqui vanco required a prior auth
Attending sent new script for capsule vanco this AM, pharmacy confirmed coverage of capsule form and will be delivered to pt's home this evening
Call with spouse to review plan- she is in agreement
She will arrive around 5pm for transport home
Update to nurse who will provide next dose of abx before pt's leaves this evening
Discharge Disposition- home with Randy [facility], spouse transport
Fax- [phone]
--- NOTE | 2025-09-06 15:06 | W.PN.HOSP.TC ---
Today's Communication/Plan
-
Yesterday's discharge had been delayed due to logistical prior with oral vancomycin insurance authorization.
New prescription for oral vancomycin capsules sent to the pharmacy and confirmed.
Discussed with patient's
Medically optimized for discharge.
Assessment / Plan
Assessment / Plan
Impression
Patient is a 74y M with PMH significant for ASCVD and dementia who presents to ED for evaluation of diarrhea, weakness and fatigue.
Pancolitis
Sepsis with end organ dysfunction secondary to C. difficile colitis.
Hypotension secondary to above as well as dehydration with GI losses
Syncope
Nonsustained ventricular tachycardia while in the ED
Hyponatremia
Hypokalemia
Recent hospitalization with urinary tract infection
Conditions prior to admission
CAD, status post CABG, multiple PCI's with stent
Sick sinus syndrome, status post dual-chamber pacemaker
Dementia Alzheimer type
Imaging
CT abdomen and pelvis with IV contrast only
IMPRESSION:
1. Acute colitis extending from cecum to the sigmoid colon. No signs of abscess formation. Infectious and inflammatory etiologies are the most likely differential considerations.
2. Mild intrahepatic biliary dilation, indeterminate etiology.
3. Enlarged, heterogeneous prostate gland as above. Mild urinary bladder wall thickening, question outlet obstruction.
Echocardiogram 08/30
1. Normal biventricular size and global systolic function with an ejection fraction of 50 to 55%. Hypokinesis of the inferoseptal, anteroseptal and apical inferior granda.
2. No significant valve disease.
3. No prior study available for comparison.
Plan
Pancolitis secondary to C. difficile.
Sepsis secondary to above present on admission
Hypotension multifactorial due to above as well as dehydration with GI losses.
Recent hospitalization for urinary tract infection completed course of antibiotics
Presenting with profuse diarrhea and CT scan findings as above.
Overall improved with trending down fever and normalized white count
Benign abdominal examination
Continue oral vancomycin with addition of IV Flagyl
Stop IV fluids and observe BP
BRAT diet
Recurrent syncope at home.
Suspect secondary to dehydration.
Noted nonsustained VT in the emergency room.
Twelve-lead ECG with atrial paced rhythm. Nonspecific T wave abnormality
Cardiology input noted
Pacemaker interrogated with slow VT
Negative cardiac markers
Echocardiogram as above
Continue telemetry monitoring.
Replete magnesium and potassium
Continue beta-bekah
Initiated on amiodarone with plan for 3 months treatment
Hold mag ox -may be contributing to diarrhea
can do mag glycinate as outpatient
Hyponatremia. Sodium 135
Suspect hypovolemia secondary to GI losses.
TSH within normal limits
Urine osmolarity consistent with increased ADH state likely secondary to hypotension
Sodium improved with IV hydration 128�139.
Recent UTI.
BPH with concern for bladder outlet obstruction on imaging.
Bladder scan for retention.
ASCVD.
Episodes of VT as above.
Continue preadmission regimen including metoprolol, Plavix, atorvastatin, Vascepa. Initiated on amiodarone for 3 months
Dementia Alzheimer type.
Monitor for acute agitation/delirium during hospital stay.
Preadmission regimen including trazodone, memantine, Lexapro, Aricept.
Hypokalemia
K stabilized.
Given nonsustained VT, holding home QT prolonging medications including Aricept and Lexapro
DVT Prophylaxis: started lovenox
Code Status: DNI
Anticipated Discharge: Today
Subjective/Interval History
-
Date of Service: September 06, 2025
Objective Data
-
Vital Signs:
Vital Signs
Temp Pulse Resp BP Pulse Ox
98.0 F 64 16 138/53 100
09/06/25 07:36 09/06/25 09:50 09/06/25 07:36 09/06/25 09:50 09/06/25 07:36
I&O
09/05/25 09/06/2525
06:59 06:59 06:59
Intake Total 800 / 800 160 / 160
Balance 800 / 800 160 / 160
Physical Exam
-
General: Well Developed and No Apparent Distress
HEENT: Normocephalic, Atraumatic and Moist Mucous Membranes
Respiratory: Clear to Auscultation
Cardiac: Regular Rhythm and S1/S2; Negative Murmur, Rub or Gallop
GI: Soft, Nontender, Nondistended and Normal Bowel Sounds; Negative Organomegaly
Rectal: Deferred by Provider
Musculoskeletal: No Clubbing, No Cyanosis and No Edema
Skin: Negative Rash
Neuro: Awake and Nonfocal/Grossly Intact
Psych: Apparent Dementia
[2025-09-06 15:11] VITALS: BP 111/57
== END 2025-09-06 17:18 | disposition home or self-care (01) | DRG 854 ==
LOC: 2 NORTH 05:46
PROVIDERS: Hospitalist; Nurse Practitioner Family; Physician Assistant; ADMITTING PHYSICIAN Hospitalist; ATTENDING PHYSICIAN Internal Medicine; EMERGENCY PHYSICIAN Emergency Medicine; FAMILY PHYSICIAN Internal Medicine; OTHER PHYSICIAN Internal Medicine Cardiovascular Disease
PROC: 4B02XSZ Measurement of Cardiac Pacemaker, External Approach (ICD-10-PCS; 2025-08-30)
PROC: 02583ZZ Destruction of Conduction Mechanism, Percutaneous Approach (ICD-10-PCS; 2025-09-01)
DX: A41.9 Sepsis, unspecified organism (principal); A04.72 Enterocolitis due to Clostridium difficile, not specified as recurrent; E87.1 Hypo-osmolality and hyponatremia; I48.19 Other persistent atrial fibrillation; I48.92 Unspecified atrial flutter; I47.20 Ventricular tachycardia, unspecified; R65.20 Severe sepsis without septic shock; E87.6 Hypokalemia; I95.89 Other hypotension; E86.0 Dehydration; G30.9 Alzheimer's disease, unspecified; I49.5 Sick sinus syndrome; Z79.02 Long term (current) use of antithrombotics/antiplatelets; Z87.440 Personal history of urinary (tract) infections; Z87.891 Personal history of nicotine dependence
CPT/HCPCS: 74177; 80048; 80053; 83605; 83735; 83935; 84100; 84300; 84443; 84484; 85025; 85027; 86803; 87045; 87046; 87324; 87427; 87449; 93005; 93306; 96361; 96365; 96375; 97116; 97163; 97530; 99285; Q9967